=== PATIENT | male | born 1945 | race Caucasian/White ===

== ENCOUNTER 2019-01-11 14:13 | Observation (INO) ==
[2019-01-11 16:56] LABS: Basophils % 0.4 %; Eosinophils # 0.3 K/mcL (0.0-0.6); Eosinophils % 2.5 %; Hematocrit 42.8 % (37.5-50.1); Hemoglobin 13.3 g/dL (12.9-16.9); Immature Granulocytes % 0.5 % (0-4); Lymphocytes # 1.4 K/mcL (0.6-4.6); Lymphocytes % 13.1 %; Mean Corpuscular HGB Conc 31.1 g/dL (31.6-35.5); Mean Corpuscular Hemoglobin 29.5 pg (28.0-33.3); Mean Corpuscular Volume 94.9 fL (83.0-100.0); Mean Platelet Volume 9.8 fL (9.4-12.4); Monocytes # 1.1 K/mcL (0.0-1.3); Neutrophils # 7.5 K/mcL (1.6-8.9); Platelet Count 205 K/mcL (140-400); Red Blood Count 4.51 M/mcL (4.19-5.50); Red Cell Distribution Width 13.6 % (11.5-14.5); Segmented Neutrophils % 72.5 %; White Blood Count 10.3 K/mcL (4.3-11.1)
--- NOTE | 2019-01-11 17:02 | Emergency Department Note ---
Disposition Clinical Impression: Elevated d-dimer, Elevated troponin, Fluid retention, Pulmonary nodule Disposition: Admitted As Inpatient Condition: Fair Referrals: David Roman MD [Primary Care Provider] - Forms: ED Satisfaction Letter, Work/School Release Time of Disposition: 19:19 General Adult HPI - General Chief complaint: ED General Medical Stated complaint: Fluid Retention,CHERYLE, Time Seen by Provider: 01/11/19 16:11 Source: patient Mode of arrival: ambulatory Limitations: no limitations Nursing Notes Reviewed: Yes Vital Signs Reviewed: Yes - History of Present Illness HPI Narrative: Patient is a 73-year-old male that presents the emergency department with reports of fluid retention. Patient states that for the past 3 weeks she has had increased retention in his lower extremity's. Patient states that over the last 4 months has gained 28 pounds. Patient states that his primary care provider Breanna start him on Lasix and was concerned about starting him on it as an outpatient and recommended that he come here to the emergency department to have his Lasix administered. Patient denies any chest pain. Patient states he does have a little bit of increased shortness of breath since he started retaining fluid. She states that his legs are significantly more swollen the aunt his baseline. Patient denies any fevers, vomiting, diarrhea or any other symptoms at this time. Pain Scale: 7 - Related Data Home Medications Medication Instructions Recorded Confirmed Aspirin [Lo-Dose Aspirin EC] 81 mg PO DAILY 01/11/19 01/11/19 Atorvastatin [Lipitor] 20 mg PO DAILY 01/11/19 01/11/19 Benazepril HCl [Lotensin] 40 mg PO DAILY 01/11/19 01/11/19 Doxazosin [Cardura] 4 mg PO HS 01/11/19 01/11/19 Insulin NPH Hum/Reg Insulin Hm 100 unit SQ BID 01/11/19 01/11/19 [Humulin 70-30 Vial] Metformin HCl [Fortamet] 1,000 mg PO BID 01/11/19 01/11/19 Metoprolol Succinate [Toprol Xl] 50 mg PO DAILY 01/11/19 01/11/19 Spironolactone [Aldactone] 25 mg PO DAILY 01/11/19 01/11/19 Allergies Allergy/AdvReac Type Severity Reaction Status Date / Time No Known Allergies Allergy Verified 01/11/19 14:25 All systems ED: reviewed and negative except as stated. Constitutional: Denies: fever Cardiovascular: Denies: chest pain Respiratory: Reports: dyspnea Gastrointestinal: Denies: abdominal pain, nausea, vomiting Genitourinary: Denies: urgency, dysuria, frequency Integumentary: Reports: other (Fluid retention in bilateral lower extremities) Neurological: Denies: weakness, numbness, paresthesias Past Medical History - Past Medical History Medical history: Reports: atrial fibrillation, cardiomyopathy, CHF, coronary artery disease, diabetes, hyperlipidemia, hypertension, peripheral artery disease Psychiatric history: Reports: no psych history - Social History Smoking Status: Current every day smoker Smokeless Tobacco Status: No Alcohol use: Reports: none Drug use: Reports: none Physical Exam - General Limitations: no limitations General appearance: alert, in no apparent distress - Head Head exam: atraumatic, normocephalic - Eye Eye exam: Present: normal appearance, EOMI - Neck Neck exam: Present: normal inspection, full ROM, trachea midline - Respiratory Respiratory exam: Present: normal lung sounds bilaterally. Absent: respiratory distress, wheezes - Cardiovascular Cardiovascular exam: Present: regular rate, normal rhythm, normal heart sounds, +S1, +S2 - Abdominal Exam Abdominal exam: Present: soft, Non-Tender, normal bowel sounds - Extremities Exam Extremities exam: Present: normal inspection, full ROM, other (1+ pitting edema bilateral lower extremity's.) - Neurological Exam Neurological exam: Present: alert, oriented X3 - Psychiatric Psychiatric exam: Present: normal affect, normal mood - Skin Skin exam: Present: warm, dry, intact, other (Small amount of erythema to bilateral lower extremities likely secondary to venous stasis.) Course Vital Signs Temperature 97.9 F 01/11/19 14:25 Pulse Rate 115 01/11/19 14:25 Respiratory Rate 15 01/11/19 14:25 Blood Pressure 119/71 01/11/19 14:25 O2 Sat by Pulse Oximetry 92 01/11/19 14:25 Temperature 97.9 F 01/11/19 16:21 Pulse Rate 107 01/11/19 19:25 Respiratory Rate 16 01/11/19 19:25 Blood Pressure 136/94 01/11/19 19:25 O2 Sat by Pulse Oximetry 93 01/11/19 19:25 Oxygen Delivery Oxygen Delivery Room Air Medical Decision Making - MDM Narrative Medical decision making narrative: Due the patient's into the emergency Department with reports of fluid retention we will obtain basic laboratory testing as well as chest x-ray and EKG. patient's troponin was elevated at 0.04. The patient's d-dimer was elevated at 772. CTA of the chest was performed which showed no evidence of a pulmonary e mboli but did show pulmonary nodules. This was relayed to the patient that he would need follow-up for these nodules. Patient expressed understanding of this. Patient did not have any active chest pain. Patient's EKG showed likely atrial relation. Patient's BNP was 350. Based on the patient having signs of fluid retention and an elevated troponin without any previous laboratory testing that is most appropriate for him to be admitted to the hospital for further evaluation and management. Patient will be given 40 of IV Lasix. I called and spoke the admitting hospitalist and he has accepted the patient to their service. Patient will be admitted to hospital this time for further evaluation and management of his fluid retention and elevated troponin. - Medical Records Medical records reviewed: Yes I reviewed the patient's medical records. - Lab Data Lab results reviewed: Yes I reviewed the patient's lab results. Result diagrams: 01/11/19 16:33 01/11/19 16:33 Lab Results 01/11/19 01/11/19 01/11/19 Range/Units 16:33 16:33 16:33 WBC 10.3 (4.3-11.1) K/mcL RBC 4.51 (4.19-5.50) M/mcL Hgb 13.3 (12.9-16.9) g/dL Hct 42.8 (37.5-50.1) % MCV 94.9 (83.0-100.0) fL MCH 29.5 (28.0-33.3) pg MCHC 31.1 L (31.6-35.5) g/dL RDW 13.6 (11.5-14.5) % Plt Count 205 (140-400) K/mcL MPV 9.8 (9.4-12.4) fL Immature Gran % 0.5 (0-4) % Seg Neutrophils % 72.5 % Lymphocytes % 13.1 % Monocytes % 11.0 % Eosinophils % 2.5 % Basophils % 0.4 % Neutrophils # 7.5 (1.6-8.9) K/mcL Lymphocytes # 1.4 (0.6-4.6) K/mcL Monocytes # 1.1 (0.0-1.3) K/mcL Eosinophils # 0.3 (0.0-0.6) K/mcL Basophils # 0.0 (0.0-0.2) K/mcL D-Dimer (0-500) ng/mLFEU Sodium 138 (136-145) mEq/L Potassium 4.7 (3.5-5.1) mEq/L Chloride 102 (98-107) mEq/L Carbon Dioxide 29 (23-29) mEq/L BUN 15 (8-23) mg/dL Creatinine 0.90 (0.70-1.30) mg/dL Est GFR ( Amer) > 60 (> 60) Est GFR (Non-Af Amer) > 60 (> 60) BUN/Creatinine Ratio 17 (6-26) Glucose 74 (70-105) mg/dL Calculated Osmolality 285 (280-300) Calcium 9.1 (8.6-10.3) mg/dL Troponin I 0.04 H* (< 0.04) ng/mL B-Natriuretic Peptide 350 H (Less than 100) pg/mL 01/11/19 Range/Units 16:33 WBC (4.3-11.1) K/mcL RBC (4.19-5.50) M/mcL Hgb (12.9-16.9) g/dL Hct (37.5-50.1) % MCV (83.0-100.0) fL MCH (28.0-33.3) pg MCHC (31.6-35.5) g/dL RDW (11.5-14.5) % Plt Count (140-400) K/mcL MPV (9.4-12.4) fL Immature Gran % (0-4) % Seg Neutrophils % % Lymphocytes % % Monocytes % % Eosinophils % % Basophils % % Neutrophils # (1.6-8.9) K/mcL Lymphocytes # (0.6-4.6) K/mcL Monocytes # (0.0-1.3) K/mcL Eosinophils # (0.0-0.6) K/mcL Basophils # (0.0-0.2) K/mcL D-Dimer 773 H (0-500) ng/mLFEU Sodium (136-145) mEq/L Potassium (3.5-5.1) mEq/L Chloride (98-107) mEq/L Carbon Dioxide (23-29) mEq/L BUN (8-23) mg/dL Creatinine (0.70-1.30) mg/dL Est GFR ( Amer) (> 60) Est GFR (Non-Af Amer) (> 60) BUN/Creatinine Ratio (6-26) Glucose (70-105) mg/dL Calculated Osmolality (280-300) Calcium (8.6-10.3) mg/dL Troponin I (< 0.04) ng/mL B-Natriuretic Peptide (Less than 100) pg/mL - Radiology Data Radiology results reviewed: Yes I reviewed the patient's radiology results. Chest X-Ray 01/11/19 16:11 IMPRESSION: Cardiomegaly with mild vascular indistinctness, suggesting superimposed pulmonary edema D/ / Miguel Angel Mcginnis MD / Miguel Angel Mcginnis MD Interpreting Provider: Miguel Angel Mcginnis MD Chest CTA 01/11/19 17:50 IMPRESSION: No evidence of pulmonary embolism. Trace right pleural effusion. Central bronchial wall thickening is identified as well as bilateral innumerable subcentimeter mostly peripheral noncalcified nodules; findings likely represent infectious airways disease/pneumonitis. See follow-up recommendation below. Cholelithiasis. There is ill definition of the right upper quadrant mesenteric fat. Correlation for acute inflammatory process is recommended. RECOMMENDATIONS: Multiple pulmonary nodules. Most severe: 7.0 mm solid pulmonary nodule within the upper lobe. Recommend a non-contrast Chest CT at 3-6 months, then consider another non-contrast Chest CT at 18-24 months. These guidelines do not apply to patients younger than 35 years, immunocompromised patients, and patients with cancer. Follow up in patients with significant comorbidities as clinically warranted. For lung cancer screening, adhere to Lung-RADS guidelines. Reference: Radiology. 2017; 284(1):228-43. D/ / Alycia Butcher Cha, MD / Alycia Butcher Cha, MD Interpreting Provider: Alycia Butcher Cha, MD - EKG Data EKG #1 EKG attestation: Yes I reviewed and interpreted this EKG. EKG results narrative: EKG shows atrial fibrillation at a rate of 103. QRS duration 161, QTC 563. No evidence of STEMI on EKG.
[2019-01-11 17:08] LABS: BUN/Creatinine Ratio 17 (6-26); Blood Urea Nitrogen 15 mg/dL (8-23); Calcium 9.1 mg/dL (8.6-10.3); Carbon Dioxide 29 mEq/L (23-29); Chloride 102 mEq/L (98-107); Glucose 74 mg/dL (70-105); Osmolality,Calculated 285 (280-300); Potassium 4.7 mEq/L (3.5-5.1); Sodium 138 mEq/L (136-145); eGFR For African Americans > 60 (> 60); eGFR For Non-African Americans > 60 (> 60)
[2019-01-11 17:14] LABS: Troponin I 0.04 ng/mL (< 0.04)
[2019-01-11] MEDS ORDERED: Isovue-370 500 ML BOTTLE IVP ONE (17:50)
--- NOTE | 2019-01-11 19:07 | Emergency Department Note ---
Disposition Clinical Impression: Elevated d-dimer, Elevated troponin, Fluid retention, Pulmonary nodule Disposition: Admitted As Inpatient Condition: Fair Referrals: David Roman MD [Primary Care Provider] - Forms: ED Satisfaction Letter, Work/School Release Time of Disposition: 19:50 General Adult HPI - General Chief complaint: ED General Medical Stated complaint: Fluid Retention,CHERYLE, Time Seen by Provider: 01/11/19 16:11 Source: patient Mode of arrival: ambulatory Limitations: no limitations - History of Present Illness Pain Scale: 7 - Related Data Home Medications Medication Instructions Recorded Confirmed Aspirin [Lo-Dose Aspirin EC] 81 mg PO DAILY 01/11/19 01/11/19 Atorvastatin [Lipitor] 20 mg PO DAILY 01/11/19 01/11/19 Benazepril HCl [Lotensin] 40 mg PO DAILY 01/11/19 01/11/19 Doxazosin [Cardura] 4 mg PO HS 01/11/19 01/11/19 Insulin NPH Hum/Reg Insulin Hm 40 unit SQ BID 01/11/19 01/11/19 [Humulin 70-30 Vial] Metformin HCl [Fortamet] 1,000 mg PO BID 01/11/19 01/11/19 Metoprolol Succinate [Toprol Xl] 50 mg PO DAILY 01/11/19 01/11/19 Spironolactone [Aldactone] 25 mg PO DAILY 01/11/19 01/11/19 Allergies Allergy/AdvReac Type Severity Reaction Status Date / Time No Known Allergies Allergy Verified 01/11/19 14:25 Constitutional: Denies: fever Cardiovascular: Denies: chest pain Respiratory: Reports: dyspnea Gastrointestinal: Denies: abdominal pain, nausea, vomiting Genitourinary: Denies: urgency, dysuria, frequency Integumentary: Reports: other (Fluid retention in bilateral lower extremities) Neurological: Denies: weakness, numbness, paresthesias Past Medical History - Past Medical History Medical history: Reports: atrial fibrillation, cardiomyopathy, CHF, coronary artery disease, diabetes, hyperlipidemia, hypertension, peripheral artery disease Psychiatric history: Reports: no psych history - Social History Smoking Status: Current every day smoker Smokeless Tobacco Status: No Alcohol use: Reports: none Drug use: Reports: none Physical Exam - General Limitations: no limitations General appearance: alert, in no apparent distress Course Vital Signs Temperature 97.9 F 01/11/19 14:25 Pulse Rate 115 01/11/19 14:25 Respiratory Rate 15 01/11/19 14:25 Blood Pressure 119/71 01/11/19 14:25 O2 Sat by Pulse Oximetry 92 01/11/19 14:25 Temperature 97.9 F 01/11/19 16:21 Pulse Rate 107 01/11/19 19:25 Respiratory Rate 16 01/11/19 19:25 Blood Pressure 136/94 01/11/19 19:25 O2 Sat by Pulse Oximetry 93 01/11/19 19:25 Oxygen Delivery Oxygen Delivery Room Air Medical Decision Making - Medical Records Medical records reviewed: Yes I reviewed the patient's medical records. - Lab Data Lab results reviewed: Yes I reviewed the patient's lab results. Result diagrams: 01/11/19 16:33 01/11/19 16:33 Lab Results 01/11/19 01/11/19 01/11/19 Range/Units 16:33 16:33 16:33 WBC 10.3 (4.3-11.1) K/mcL RBC 4.51 (4.19-5.50) M/mcL Hgb 13.3 (12.9-16.9) g/dL Hct 42.8 (37.5-50.1) % MCV 94.9 (83.0-100.0) fL MCH 29.5 (28.0-33.3) pg MCHC 31.1 L (31.6-35.5) g/dL RDW 13.6 (11.5-14.5) % Plt Count 205 (140-400) K/mcL MPV 9.8 (9.4-12.4) fL Immature Gran % 0.5 (0-4) % Seg Neutrophils % 72.5 % Lymphocytes % 13.1 % Monocytes % 11.0 % Eosinophils % 2.5 % Basophils % 0.4 % Neutrophils # 7.5 (1.6-8.9) K/mcL Lymphocytes # 1.4 (0.6-4.6) K/mcL Monocytes # 1.1 (0.0-1.3) K/mcL Eosinophils # 0.3 (0.0-0.6) K/mcL Basophils # 0.0 (0.0-0.2) K/mcL D-Dimer (0-500) ng/mLFEU Sodium 138 (136-145) mEq/L Potassium 4.7 (3.5-5.1) mEq/L Chloride 102 (98-107) mEq/L Carbon Dioxide 29 (23-29) mEq/L BUN 15 (8-23) mg/dL Creatinine 0.90 (0.70-1.30) mg/dL Est GFR ( Amer) > 60 (> 60) Est GFR (Non-Af Amer) > 60 (> 60) BUN/Creatinine Ratio 17 (6-26) Glucose 74 (70-105) mg/dL Calculated Osmolality 285 (280-300) Calcium 9.1 (8.6-10.3) mg/dL Troponin I 0.04 H* (< 0.04) ng/mL B-Natriuretic Peptide 350 H (Less than 100) pg/mL 01/11/19 Range/Units 16:33 WBC (4.3-11.1) K/mcL RBC (4.19-5.50) M/mcL Hgb (12.9-16.9) g/dL Hct (37.5-50.1) % MCV (83.0-100.0) fL MCH (28.0-33.3) pg MCHC (31.6-35.5) g/dL RDW (11.5-14.5) % Plt Count (140-400) K/mcL MPV (9.4-12.4) fL Immature Gran % (0-4) % Seg Neutrophils % % Lymphocytes % % Monocytes % % Eosinophils % % Basophils % % Neutrophils # (1.6-8.9) K/mcL Lymphocytes # (0.6-4.6) K/mcL Monocytes # (0.0-1.3) K/mcL Eosinophils # (0.0-0.6) K/mcL Basophils # (0.0-0.2) K/mcL D-Dimer 773 H (0-500) ng/mLFEU Sodium (136-145) mEq/L Potassium (3.5-5.1) mEq/L Chloride (98-107) mEq/L Carbon Dioxide (23-29) mEq/L BUN (8-23) mg/dL Creatinine (0.70-1.30) mg/dL Est GFR ( Amer) (> 60) Est GFR (Non-Af Amer) (> 60) BUN/Creatinine Ratio (6-26) Glucose (70-105) mg/dL Calculated Osmolality (280-300) Calcium (8.6-10.3) mg/dL Troponin I (< 0.04) ng/mL B-Natriuretic Peptide (Less than 100) pg/mL - Radiology Data Radiology results reviewed: Yes I reviewed the patient's radiology results. Attestation Statement - Attestation Attestation: I examined this patient and my medical decision-making was reviewed with the Resident Physician. I agree with the documented findings, disposition and treatment plan as described except to the extent set forth below. 73-year-old male since emergency room for peripheral edema that increasing associated with weight gain and some slight shortness of breath. Denies chest pain. Saw his PCP told him to go to the ER to be evaluated for volume overload. Patient states he is gained weight over the past couple weeks. He is not on any Lasix. Screening lab work showed a slightly elevated troponin as well as an elevated BNP. CT of the chest was done. Those results are pending. Vitals are stable. Patient does follow with focal cardiology here. Patient reports a history of congestive heart failure.
[2019-01-11] MEDS ORDERED: Furosemide 40 MG/4 ML VIAL IVP ONE (19:20)
[2019-01-11] MEDS ORDERED: traMADol 50 MG TABLET PO PRN (20:47)
[2019-01-11] MEDS ORDERED: *HR* Dextrose 50 % in Water (Syg) 50 ML SYRINGE IVP PRN (20:47)
[2019-01-11] MEDS ORDERED: Acetaminophen 325 MG TABLET PO PRN (20:47)
[2019-01-11] MEDS ORDERED: Dextrose Gel 15 GM/37.5 ML TUBE PO PRN ×2 (20:47)
[2019-01-11] MEDS ORDERED: Furosemide 40 MG/4 ML VIAL IVP SCH (21:00)
[2019-01-11] MEDS ORDERED: Insulin LISPRO 300 UNITS/3 ML VIAL SQ SCH (21:00)
[2019-01-11] MEDS ORDERED: Perflutren Lipid Microsphere 1.3 ML in 0.9 % Sodium Chloride 8.7 ML IVP ONE (21:06)
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
[2019-01-12 05:06] LABS: BUN/Creatinine Ratio 17 (6-26); Blood Urea Nitrogen 16 mg/dL (8-23); Calcium 8.9 mg/dL (8.6-10.3); Carbon Dioxide 28 mEq/L (23-29); Chloride 103 mEq/L (98-107); Cholesterol 97 mg/dL (< 200); Glucose 174 mg/dL (70-105); HDL Cholesterol 32 mg/dL (40-59); LDL Cholesterol,Calculated 48 mg/dL (0-99); Osmolality,Calculated 291 (280-300); Potassium 4.3 mEq/L (3.5-5.1); Sodium 138 mEq/L (136-145); Triglycerides 86 mg/dL (< 150); eGFR For African Americans > 60 (> 60); eGFR For Non-African Americans > 60 (> 60)
[2019-01-12] MEDS: *HR* Heparin 5,000 UNIT/ML VIAL SQ SCH ×2 (05:07→17:22)
[2019-01-12 05:20] LABS: Thyroid Stimulating Hormone 2.031 mcIU/mL (0.340-5.600)
[2019-01-12 06:46] LABS: Estimated Average Glucose 157 mg/dl
[2019-01-12] MEDS ORDERED: Furosemide 40 MG/4 ML VIAL IVP SCH (08:00)
[2019-01-12] MEDS: Insulin LISPRO 300 UNITS/3 ML VIAL SQ SCH ×2 (08:25→12:17)
[2019-01-12] MEDS: Aspirin Enteric Coated 81 MG Tablet PO SCH (08:26)
[2019-01-12] MEDS: Metoprolol XL (24 HR) Succ 50 MG TAB.ER.24H PO SCH (08:26)
[2019-01-12] MEDS: Spironolactone 25 MG TABLET PO SCH (08:26)
[2019-01-12] MEDS: Lisinopril 20 MG TABLET PO SCH (08:27)
--- NOTE | 2019-01-12 12:29 | Internal Med Progress Note ---
Hospitalist Progress Note - Encounter Date of Encounter: 01/12/19 Time of Encounter: 10:00 - Subjective Interval History: Mr. Alvarez is a 73-year-old M with known PMH of hypertension, diabetes, atrial fibrillation but not on anticoagulants, coronary and peripheral artery disease who presented emergency room upon referral by his PCP after he went in with complaints of increasing generalized swelling especially in his lower legs in addition to 28 pounds of weight gain over the last 3 months. It was consideration to start him on furosemide as an outpatient however his PCP was concerned about his general state and therefore was referred to the ER. In the ER his BNP was 350 in the setting of obesity. His initial troponin was 0.04. He was admitted in the hospital and placed him on monitoring and evaluation advisor. He was started on IV Lasix. His troponin trended down to normal. He denied any CP. Pt stated he is feeling little better today. He still has moderate swelling in the legs. Also noticed erythema with a couple of ulcers over Left mid anderson area. - Exam Vitals: Temp Pulse Resp BP Pulse Ox 98.6 F 115 20 116/71 96 01/12/19 11:15 01/12/19 11:15 01/12/19 11:15 01/12/19 11:15 01/12/19 11:15 Exam: Gen: Alert, awake, Oriented to time,place and person Chest: Diminished breath sounds B/L, No wheezing, No crackles, No rales Heart: S1S2+ Tachycardia, No murmurs Abd: Soft, NT, BS +, No organomegaly Ext: Moderate edema, noticed erythema in both legs, a couple of open ulcers noticed over Left mid anderson region, pulses are palpable, No calf tenderness Neuro : No acute focal neuro deficits noticed Skin: Venous stasis changes in both legs - Assessment and Plan (1) Acute exacerbation of CHF (congestive heart failure) Current Visit: Yes Status: Acute Assessment and Plan: Suspecting possible systolic CHF Waiting on 2 D Echo since he is Lasix naive, changed his Lasix to 20mg BID strict I & O cont ACEI, metoprolol and ASA (2) HTN (hypertension) Current Visit: Yes Status: Acute (3) Cellulitis Current Visit: Yes Status: Acute Assessment and Plan: Due to venous stasis started him on empirical abx Ancef (4) Venous stasis dermatitis of both lower extremities Current Visit: Yes Status: Acute (5) Elevated troponin Current Visit: Yes Status: Acute Assessment and Plan: due to CHF exacerbation trended down will f/u on 2 D Echo (6) Atrial fibrillation Current Visit: Yes Status: Acute Assessment and Plan: rate fairly controlled wit home dose Metoprolol cont close monitoring for now He is not on anti coag His CHADSVASC score @ 3 Will talk to pt and his PCP about anti coag options (7) Obesity (BMI 30.0-34.9) Current Visit: Yes Status: Acute Assessment and Plan: counseled to loose weight - Time Spent with Patient Total time spent is greater than 50% in coordination of care (as documented) at patient's floor/unit and/or counseling patient: Internal Medicine: Result - Labs CBC & Chem 7: 01/11/19 16:33 01/12/19 04:17 Labs: Short CBC 01/11/19 Range/Units 16:33 WBC 10.3 (4.3-11.1) K/mcL Hgb 13.3 (12.9-16.9) g/dL Hct 42.8 (37.5-50.1) % Plt Count 205 (140-400) K/mcL Neutrophils # 7.5 (1.6-8.9) K/mcL BMP 01/11/19 01/12/19 16:33 04:17 Sodium 138 138 Potassium 4.7 4.3 Chloride 102 103 Carbon Dioxide 29 28 BUN 15 16 Creatinine 0.90 0.96 Glucose 74 174 H Calcium 9.1 8.9 Cardiac Enzymes 01/11/19 01/11/19 Range/Units 16:33 21:25 Troponin I 0.04 H* 0.03 (< 0.04) ng/mL - ABG Interpretation ABG results: PT/INR, D-dimer D-Dimer 773 ng/mLFEU (0-500) H 01/11/19 16:33 - Impressions Impressions Chest X-Ray 01/11/19 16:11 IMPRESSION: Cardiomegaly with mild vascular indistinctness, suggesting superimposed pulmonary edema D/ / Miguel Angel Mcginnis MD / Miguel Angel Mcginnis MD Interpreting Provider: Miguel Angel Mcginnis MD Chest CTA 01/11/19 17:50 IMPRESSION: No evidence of pulmonary embolism. Trace right pleural effusion. Central bronchial wall thickening is identified as well as bilateral innumerable subcentimeter mostly peripheral noncalcified nodules; findings likely represent infectious airways disease/pneumonitis. See follow-up recommendation below. Cholelithiasis. There is ill definition of the right upper quadrant mesenteric fat. Correlation for acute inflammatory process is recommended. RECOMMENDATIONS: Multiple pulmonary nodules. Most severe: 7.0 mm solid pulmonary nodule within the upper lobe. Recommend a non-contrast Chest CT at 3-6 months, then consider another non-contrast Chest CT at 18-24 months. These guidelines do not apply to patients younger than 35 years, immunocompromised patients, and patients with cancer. Follow up in patients with significant comorbidities as clinically warranted. For lung cancer screening, adhere to Lung-RADS guidelines. Reference: Radiology. 2017; 284(1):228-43. D/ / Alycia Butcher Cha, MD / Alycia Butcher Cha, MD Interpreting Provider: Alycia Butcher Cha, MD Echocardiogram 01/11/19 20:44 Impressions: LVEF 30%. Atypical septal motion consistent with paced rhythm. Indeterminate diastolic function. LV chamber size upper limits of normal. Definity echo contrast was used. There is no LV thrombus. Right ventricle is not optimally visualized. Mild mitral regurgitation. Mild tricuspid regurgitation. TR signal is suboptimal to estimate RVSP. A device lead was visualized in the right atrium and right ventricle. No prior echo for comparison. Left Ventricular Wall Motion: Rest Echo Findings The apex, apical inferior, mid inferior, basal inferior, apical anterior, mid anterior, basal anterior, apical septal, mid inferior septal, basal inferior septal, apical lateral, mid anterior lateral, basal anterior lateral, mid anterior septal, mid inferior lateral, basal anterior septal and basal inferior lateral hernandez were hypokinetic. Findings: Study Quality * Technically adequate exam. ECG Findings * Paced rhythm. Left Ventricle * LVEF 30%. * Atypical septal motion consistent with paced rhythm. * Indeterminate diastolic function. * LV chamber size upper limits of normal. * Definity echo contrast was used. * There is no LV thrombus. Right Ventricle * Right ventricle is not optimally visualized. Left Atrium * Moderately dilated left atrium. Right Atrium * Mildly dilated right atrium. Aortic Valve * No aortic regurgitation. * Aortic valve not well visualized. * No aortic stenosis. Mitral Valve * Normal mitral valve structure. * No mitral stenosis. * Mild mitral regurgitation. Tricuspid Valve * Tricuspid valve not well visualized. * Mild tricuspid regurgitation. * Estimated RA pressure is 8 mmHg. Pulmonic Valve * Pulmonic valve is not well visualized. * No pulmonic stenosis. * No pulmonic regurgitation. Pulmonary Artery * Pulmonary artery not well visualized. Aorta * Normally sized aortic root. Pericardium * There is no pericardial effusion present. Device lead * A device lead was visualized in the right atrium and right ventricle. Interatrial Septum * No evidence of PFO by color Doppler. Consult Discharge Plan - Plan Referrals: Abel,David Islas MD [Primary Care Provider] - (3) Cellulitis Qualifiers: Site of cellulitis: extremity Site of cellulitis of extremity: lower extremity (6) Atrial fibrillation Qualifiers: Atrial fibrillation type: chronic Qualified Code(s): I48.2 - Chronic atrial fibrillation
[2019-01-12] MEDS: Insulin NPH/REG 70/30 100 UNIT/ML (x5UNIT) SQ SCH ×2 (13:19→21:11)
[2019-01-12] MEDS: ceFAZolin 1,000 MG in Water for inj. (sterile) 10 ML IVP SCH ×2 (13:19→23:50)
[2019-01-12] MEDS: Multivit/Ca/Min/Fe/FA 1 TAB TABLET PO SCH (13:20)
--- NOTE | 2019-01-12 14:23 | Electrocardiograph Report ---
[place] [id number] Test Date: 2019-01-11 Pat Name: Grzegorz Alvarez Department: EXAM1 Room: 3B38 Gender: M [employer]: : 1945 Requested By: Cory Viera Order Number: [id number] Reading MD: Tyson Calixto Measurements Intervals [place] Rate: 103 P: [place]: QRS: -88 QRSD: 161 T: 58 QT: 430 QTc: 563 Interpretive Statements Atrial fibrillation Right bundle branch block Inferior infarct, old Anterior infarct, old ateral leads are also involved Electronically Signed On 01-12-2019 14:22:29 EDT by Tyson Calixto
[2019-01-12] MEDS: Furosemide 20 MG/2 ML VIAL IVP SCH (17:22)
[2019-01-13] MEDS: *HR* Heparin 5,000 UNIT/ML VIAL SQ SCH (03:42)
[2019-01-13] MEDS: Furosemide 20 MG/2 ML VIAL IVP SCH (08:24)
[2019-01-13] MEDS: ceFAZolin 1,000 MG in Water for inj. (sterile) 10 ML IVP SCH (08:25)
[2019-01-13] MEDS: Metoprolol XL (24 HR) Succ 50 MG TAB.ER.24H PO SCH (08:25)
[2019-01-13] MEDS: Lisinopril 20 MG TABLET PO SCH (08:25)
[2019-01-13] MEDS: Spironolactone 25 MG TABLET PO SCH (08:25)
[2019-01-13] MEDS: Multivit/Ca/Min/Fe/FA 1 TAB TABLET PO SCH (08:25)
[2019-01-13] MEDS: Aspirin Enteric Coated 81 MG Tablet PO SCH (08:25)
[2019-01-13] MEDS: Insulin NPH/REG 70/30 100 UNIT/ML (x5UNIT) SQ SCH (08:28)
[2019-01-13 11:08] VITALS: BP 123/78
[2019-01-13 11:28] LABS: BUN/Creatinine Ratio 25 (6-26); Blood Urea Nitrogen 28 mg/dL (8-23); Calcium 9.5 mg/dL (8.6-10.3); Carbon Dioxide 34 mEq/L (23-29); Chloride 101 mEq/L (98-107); Glucose 105 mg/dL (70-105); Magnesium 1.9 mg/dL (1.6-2.6); Osmolality,Calculated 292 (280-300); Potassium 3.9 mEq/L (3.5-5.1); Sodium 138 mEq/L (136-145); eGFR For African Americans > 60 (> 60); eGFR For Non-African Americans > 60 (> 60)
--- NOTE | 2019-01-13 11:41 | Discharge Summary ---
- NOTES TO OUTPATIENT PROVIDER Notes to Outpatient Provider: f/u with PCP in one week. f/u with Cardiology in 1-2 weeks. Please talk to your PCP and Crowd Controller about going on anti coagulation for youe Afib Date of Encounter: 01/13/19 Time of Encounter: 11:38 - Discharge Diagnosis (1) Acute exacerbation of CHF (congestive heart failure) Priority: Primary Status: Acute Qualifiers: Heart failure type: systolic Qualified Code(s): I50.23 - Acute on chronic systolic (congestive) heart failure (2) Cellulitis Priority: Primary Status: Acute Qualifiers: Site of cellulitis: extremity Site of cellulitis of extremity: lower extremity Laterality: unspecified laterality Qualified Code(s): L03.119 - Cellulitis of unspecified part of limb (3) HTN (hypertension) Priority: Secondary Status: Acute Qualifiers: Hypertension type: essential hypertension Qualified Code(s): I10 - Essential (primary) hypertension (4) Venous stasis dermatitis of both lower extremities Priority: Secondary Status: Acute (5) Elevated troponin Priority: Secondary Status: Acute (6) Atrial fibrillation Priority: Secondary Status: Acute Qualifiers: Atrial fibrillation type: chronic Qualified Code(s): I48.2 - Chronic atrial fibrillation (7) Obesity (BMI 30.0-34.9) Priority: Secondary Status: Acute Hospital course: Mr. Alvarez is a 73-year-old M with known PMH of hypertension, diabetes, atrial fibrillation but not on anticoagulation, coronary and peripheral artery disease who presented emergency room upon referral by his PCP after he went in with complaints of increasing generalized swelling especially in his lower legs in addition to 28 pounds of weight gain over the last 3 months. It was consideration to start him on furosemide as an outpatient however his PCP was concerned about his general state and therefore was referred to the ER. In the ER his BNP was 350 in the setting of obesity. His initial troponin was 0.04. He was admitted in the hospital and placed him on classroom monitor. He was started on IV Lasix. His troponin trended down to normal. He denied any CP. He did have moderate erythema with a couple of ulcers over Left mid anderson area. I started him on empirical abx IV Ancef. Pt stated his symptoms improved today. His 2 D Echo showed LVEF 30% and indeterminate diastolic function. His HR was fairly controlled so Inc his Metoprolol to 75mg and cut down on Benazepril to 20mg since his BP in 110's. His arterial doppler of b/l LE showed - b/l moderately occlusive disease. Recommend to f/u with vascular surgery Dr. Paulson as an out pt. Will d/c him home in stable condition today. Talked to pt's PCP and updated him about current hospital course as well as medication changes. Also recommend long tem anti coag for his A fib since his CHADSVASC score at 4. He is going to talk to the pt and may start him on Eliquis. - Time Spent with Patient Total time spent providing and/or coordinating discharge services: - Discharge Medications Prescriptions: New Furosemide [Lasix] 40 mg PO DAILY #30 tablet Nicotine Patch [Nicoderm] 1 each TD DAILY #30 patch.td24 Cephalexin [Keflex] 500 mg PO TID #21 capsule Continued Spironolactone [Aldactone] 25 mg PO DAILY Doxazosin [Cardura] 4 mg PO HS Metformin HCl [Fortamet] 1,000 mg PO BID Insulin NPH Hum/Reg Insulin Hm [Humulin 70-30 Vial] 40 unit SQ BID Aspirin [Lo-Dose Aspirin EC] 81 mg PO DAILY Atorvastatin [Lipitor] 20 mg PO DAILY Changed Benazepril HCl [Lotensin] 20 mg PO DAILY #15 tablet Metoprolol Succinate [Toprol Xl] 75 mg PO DAILY #45 tab.er.24h Home Medications: Aspirin [Lo-Dose Aspirin EC] 81 mg PO DAILY 01/11/19 [History] Atorvastatin [Lipitor] 20 mg PO DAILY 01/11/19 [History] Doxazosin [Cardura] 4 mg PO HS 01/11/19 [History] Insulin NPH Hum/Reg Insulin Hm [Humulin 70-30 Vial] 40 unit SQ BID 01/11/19 [History] Metformin HCl [Fortamet] 1,000 mg PO BID 01/11/19 [History] Spironolactone [Aldactone] 25 mg PO DAILY 01/11/19 [History] Benazepril HCl [Lotensin] 20 mg PO DAILY #15 tablet 01/13/19 [Rx] Cephalexin [Keflex] 500 mg PO TID #21 capsule 01/13/19 [Rx] Furosemide [Lasix] 40 mg PO DAILY #30 tablet 01/13/19 [Rx] Metoprolol Succinate [Toprol Xl] 75 mg PO DAILY #45 tab.er.24h 01/13/19 [Rx] Nicotine Patch [Nicoderm] 1 each TD DAILY #30 patch.td24 01/13/19 [Rx] Allergies/Adverse Reactions: 3 Allergy/AdvReac Type Severity Reaction Status Date / Time No Known Allergies Allergy Verified 01/11/19 14:25 Date of admission: 01/11/19 19:55 Primary care physician: David Roman MD Consults: 01/12/19 08:48 Consult to Nurse Navigator [CONS] Routine Comment: CHF 01/13/19 11:15 Consult to Cardiology [CONS] Routine Comment: Consulting Provider: Cardiology Lisa Reason for Consult: Acute systolic CHF Time Notified: 11:15 Call Completed: Yes - Constitutional Vitals: Temp Pulse Resp BP Pulse Ox 98.3 F 106 16 123/78 90 01/13/19 11:04 01/13/19 11:04 01/13/19 11:04 01/13/19 11:04 01/13/19 11:04 General appearance: Present: cooperative, A&O X 3, no acute distress, answers questions appropriately Exam: Gen: Alert, awake, Oriented to time,place and person Chest: Diminished breath sounds B/L, No wheezing, No crackles, No rales Heart: S1S2+ Tachycardia, No murmurs Abd: Soft, NT, BS +, No organomegaly Ext: Improving edema and erythema in both legs, a couple of open ulcers noticed over Left mid anderson region, pulses are palpable, No calf tenderness Neuro : No acute focal neuro deficits noticed Skin: Venous stasis changes in both legs - Patient Status Disposition: Home, Self-Care Condition: Good Overall status at discharge: patient is back to baseline - Discharge Instructions Instructions: Heart Failure (DC), Heart Healthy Diet (DC), Chronic Hypertension (DC), Low Sodium Diet (GEN) Follow Up With: David Roman MD [Primary Care Provider] - 01/23/19 9:00 am Rober Huizar DO [Partnered Physician] - (clinic will call with appt. ) Additional Instructions: Follow-up appointments: If there is not an appointment listed below, please call your physician and schedule a follow-up appointment. If you have congestive heart failure and your symptoms return, make an appointment with your physician. Medication List: Carry an up to date list of medications you are taking at all time. We have given you an updated medication list including any new medications that you have been prescribed. Please provide that list to your primary provider Symptoms: If your condition changes or you experience any of the following symptoms, notify your physician immediately: Unusual or worsening pain, fever, persistent nausea and vomiting, bleeding, increase in swelling (especially in your legs), sudden weight gain, extreme dizziness, chest pain, increased drainage or redness from a wound or incision. Go to the emergency department if you experience a problem with breathing. Weights: If you have a history of swelling or shortness of breath, weigh yourself daily and notify your physician if you have a weight gain of two or more pounds in one day or 5 or more pounds in a week. If you experience any of the warning signs for stroke: Sudden numbness or weakness of the face, arm or leg; especially on one side of the body, sudden confusion, trouble speaking or understanding, sudden trouble seeing in one or both eyes, sudden trouble walking, dizziness, loss of balance or coordination, sudden sever headache with no cause; Call 911 or go to the emergency room. Stroke is a medical emergency. Some risk factors for stroke: Age, cigarette smoking, diabetes, excessive alcohol consumption, family history, high blood pressure, overweight, physical inactivity, prior stroke, heart attack, diagnosis of carotid artery stenosis or other artery disease. If you smoke, STOP: Smoking or tobacco use significantly increases your risk of heart and lung disease. Your chance of disease greatly increases if you continue to smoke. For more information, call the [place] tobacco quit line for smoking cessation 5-047-JVMN-NOW ( ) - Diet and Activity Diet: low salt diet
[2019-01-13] MEDS ORDERED: Metoprolol XL (24 HR) Succ 25 MG TAB.ER.24H PO ONE (11:43)
== END 2019-01-13 14:30 | disposition home or self-care (01) ==
LOC: EMEROOARM 14:13 → 3BNU 14:13 → SUATTDRO 19:55 → 3BNU 20:15
PROVIDERS: ADMIT Internal Medicine; ATTEND Family Medicine

== ENCOUNTER 2019-05-04 18:25 | Inpatient (IN) ==
[2019-05-04] MEDS ORDERED: 0.9 % Sodium Chloride 1,000 ML IVC ONE (18:44)
[2019-05-04 19:36] LABS: VBG HCO3 17 mEq/L (21-27); VBG PCO2 33 mmHg (41-51); VBG PO2 80 mmHg (25-50)
[2019-05-04 19:47] LABS: INR 1.1; Prothrombin Time 12.2 Seconds (9.4-12.1)
[2019-05-04 19:50] LABS: Calcium 10.3 mg/dL (8.6-10.3); Potassium 4.3 mEq/L (3.5-5.1)
[2019-05-04] MEDS ORDERED: *HR* Dextrose 50 % in Water (Syg) 50 ML SYRINGE IVP PRN ×2 (19:57→22:25)
[2019-05-04] MEDS ORDERED: Insulin Human Regular 100 UNIT in 0.9 % Sodium Chloride 100 ML IVC SCH (20:00)
[2019-05-04 20:02] LABS: Troponin I 0.07 ng/mL (< 0.04)
[2019-05-04 20:27] LABS: Basophils % 0.2 %; Hematocrit 52.3 % (37.5-50.1); Hemoglobin 18.3 g/dL (12.9-16.9); Immature Granulocytes % 0.6 % (0-4); Lymphocytes # 0.6 K/mcL (0.6-4.6); Mean Corpuscular Hemoglobin 28.9 pg (28.0-33.3); Mean Corpuscular Volume 82.5 fL (83.0-100.0); Monocytes # 0.7 K/mcL (0.0-1.3); Monocytes % 5.1 %; Neutrophils # 12.3 K/mcL (1.6-8.9); Platelet Count 251 K/mcL (140-400); Red Blood Count 6.34 M/mcL (4.19-5.50); Red Cell Distribution Width 14.5 % (11.5-14.5); Segmented Neutrophils % 90.1 %; White Blood Count 13.6 K/mcL (4.3-11.1)
[2019-05-04] MEDS: 0.9 % Sodium Chloride 1,000 ML IVC SCH ×2 (20:28→21:13)
[2019-05-04 20:39] LABS: Albumin 3.6 g/dL (3.5-5.7); Albumin/Globulin Ratio 1.2 (1.1-2.2); Bilirubin,Direct 0.2 mg/dL (0.0-0.2); Bilirubin,Indirect 0.4 mg/dL (0.0-1.0); Bilirubin,Total 0.6 mg/dL (0.3-1.0); Globulin 2.9 g/dL (2.4-3.5); Total Protein 6.5 g/dL (6.4-8.9)
[2019-05-04 20:56] LABS: Bilirubin,Urine Moderate (Negative); Blood,Urine Small (Negative); Clarity,Urine Cloudy (Clear); Color,Urine Yellow (Yellow); Glucose,Urine (UA) >=1000 mg/dL (Normal); Ketones,Urine 40 mg/dL (Negative); Leukocyte Esterase,Urine Negative (Negative); Nitrite,Urine Negative (Negative); Protein,Urine Trace mg/dL (Neg-Trace); Specific Gravity,Urine 1.028 (1.010-1.025); Urobilinogen,Urine Normal (Normal)
[2019-05-04 20:59] LABS: Bacteria,Urine None Seen per hpf (None-Few); Squamous Epithelial Cell,Urine Many per lpf (None-Few); WBC,Urine 0-3 per hpf (0-3)
[2019-05-04 21:15] LABS: Hyaline Casts,Urine Few per lpf (None-Few)
[2019-05-04] MEDS ORDERED: Tdap (Boostrix) Vaccine 0.5 ML SYRINGE IM ONE (21:27)
[2019-05-04] MEDS ORDERED: Aspirin 325 MG TABLET PO ONE (21:28)
[2019-05-04] MEDS ORDERED: D5% in 0.45% NACL w KCl 20 MEQ/1,000 ML MLS IVC PRN (22:25)
[2019-05-04] MEDS ORDERED: Insulin LISPRO 300 UNITS/3 ML VIAL SQ PRN (22:25)
[2019-05-04 23:27] LABS: VBG HCO3 15 mEq/L (21-27); VBG PCO2 25 mmHg (41-51); VBG PH 7.37 pH Units (7.32-7.42); VBG PO2 122 mmHg (25-50)
[2019-05-04 23:31] LABS: Potassium 3.9 mEq/L (3.5-5.1)
[2019-05-05 00:52] LABS: VBG HCO3 25 mEq/L (21-27); VBG PCO2 52 mmHg (41-51); VBG PH 7.29 pH Units (7.32-7.42); VBG PO2 40 mmHg (25-50)
[2019-05-05 01:09] LABS: Potassium 3.9 mEq/L (3.5-5.1)
[2019-05-05] MEDS ORDERED: Dextrose Gel 15 GM/37.5 ML TUBE PO PRN ×2 (02:58)
[2019-05-05] MEDS ORDERED: *HR* Dextrose 50 % in Water (Syg) 50 ML SYRINGE IVP PRN (02:58)
[2019-05-05] MEDS ORDERED: D5% in Water 1,000 ML IVC PRN (02:58)
[2019-05-05 03:23] LABS: Basophils % 0.2 %; Eosinophils % 0.3 %; Hematocrit 42.5 % (37.5-50.1); Immature Granulocytes % 0.6 % (0-4); Lymphocytes # 1.1 K/mcL (0.6-4.6); Lymphocytes % 9.2 %; Mean Corpuscular Hemoglobin 29.1 pg (28.0-33.3); Mean Corpuscular Volume 80.8 fL (83.0-100.0); Mean Platelet Volume 9.5 fL (9.4-12.4); Monocytes # 1.2 K/mcL (0.0-1.3); Monocytes % 9.5 %; Neutrophils # 9.9 K/mcL (1.6-8.9); Platelet Count 203 K/mcL (140-400); Red Blood Count 5.26 M/mcL (4.19-5.50); Red Cell Distribution Width 14.1 % (11.5-14.5); Segmented Neutrophils % 80.2 %; White Blood Count 12.4 K/mcL (4.3-11.1)
[2019-05-05 03:45] LABS: Hemoglobin 15.3 g/dL (12.9-16.9)
[2019-05-05 03:51] LABS: BUN/Creatinine Ratio 36 (6-26); Blood Urea Nitrogen 39 mg/dL (8-23); Calcium 8.4 mg/dL (8.6-10.3); Carbon Dioxide 20 mEq/L (23-29); Chloride 98 mEq/L (98-107); Glucose 95 mg/dL (70-105); Osmolality,Calculated 279 (280-300); Potassium 4.2 mEq/L (3.5-5.1); Sodium 130 mEq/L (136-145); eGFR For African Americans > 60 (> 60); eGFR For Non-African Americans > 60 (> 60)
[2019-05-05] MEDS: Insulin DETEMIR 100 UNIT/ML X5UNITS SQ SCH ×2 (04:06→19:59)
[2019-05-05 04:07] LABS: Troponin I 0.06 ng/mL (< 0.04)
[2019-05-05] MEDS ORDERED: 0.9 % Sodium Chloride 1,000 ML IVC ONE ×2 (05:54→09:13)
[2019-05-05] MEDS ORDERED: 0.9 % Sodium Chloride 2,000 ML ONE (05:57)
[2019-05-05] MEDS ORDERED: *HR* Heparin 5,000 UNIT/ML VIAL SQ SCH (06:00)
[2019-05-05] MEDS: 0.9 % Sodium Chloride 1,000 ML IVC SCH ×2 (08:08→17:47)
[2019-05-05] MEDS ORDERED: Lisinopril 20 MG TABLET PO SCH (09:00)
[2019-05-05] MEDS: Insulin LISPRO 300 UNITS/3 ML VIAL SQ SCH ×4 (09:00→19:55)
[2019-05-05] MEDS: Metoprolol XL (24 HR) Succ 50 MG TAB.ER.24H PO SCH (09:00)
[2019-05-05] MEDS: Aspirin Enteric Coated 81 MG Tablet PO SCH (09:00)
[2019-05-05] MEDS ORDERED: Amiodarone Premix 360 MG/200 ML BAG IVC ONE (11:06)
[2019-05-05] MEDS ORDERED: Amiodarone Premix 150 MG/100 ML BAG IVPB ONE (11:06)
[2019-05-05] MEDS ORDERED: Amiodarone Premix 360 MG/200 ML BAG IVC SCH (11:15)
[2019-05-05] MEDS: Apixaban 5 MG TABLET PO SCH ×2 (12:08→19:54)
[2019-05-06] MEDS: 0.9 % Sodium Chloride 1,000 ML IVC SCH ×4 (02:10→23:14)
[2019-05-06 02:51] LABS: Basophils % 0.2 %; Eosinophils # 0.1 K/mcL (0.0-0.6); Hematocrit 36.9 % (37.5-50.1); Immature Granulocytes % 0.5 % (0-4); Lymphocytes # 1.3 K/mcL (0.6-4.6); Lymphocytes % 14.4 %; Mean Corpuscular HGB Conc 34.1 g/dL (31.6-35.5); Mean Corpuscular Hemoglobin 29.3 pg (28.0-33.3); Mean Corpuscular Volume 85.8 fL (83.0-100.0); Mean Platelet Volume 9.9 fL (9.4-12.4); Monocytes # 0.8 K/mcL (0.0-1.3); Monocytes % 9.3 %; Neutrophils # 6.6 K/mcL (1.6-8.9); Platelet Count 150 K/mcL (140-400); Red Cell Distribution Width 14.4 % (11.5-14.5); Segmented Neutrophils % 74.6 %; White Blood Count 8.8 K/mcL (4.3-11.1)
[2019-05-06 02:54] LABS: Hemoglobin 12.6 g/dL (12.9-16.9)
[2019-05-06 03:09] LABS: BUN/Creatinine Ratio 35 (6-26); Blood Urea Nitrogen 32 mg/dL (8-23); Calcium 7.9 mg/dL (8.6-10.3); Carbon Dioxide 21 mEq/L (23-29); Chloride 102 mEq/L (98-107); Glucose 188 mg/dL (70-105); Magnesium 1.7 mg/dL (1.6-2.6); Osmolality,Calculated 278 (280-300); Phosphorous 1.3 mg/dL (2.7-4.5); Potassium 3.9 mEq/L (3.5-5.1); Sodium 128 mEq/L (136-145); eGFR For African Americans > 60 (> 60); eGFR For Non-African Americans > 60 (> 60)
[2019-05-06] MEDS ORDERED: *HR* Digoxin 0.5 MG/2 ML AMPUL IVP ONE ×2 (05:13→05:30)
[2019-05-06] MEDS ORDERED: *HR* Digoxin 0.25 MG TABLET PO SCH ×2 (05:24→09:00)
[2019-05-06] MEDS: Metoprolol XL (24 HR) Succ 50 MG TAB.ER.24H PO SCH (08:13)
[2019-05-06] MEDS: Apixaban 5 MG TABLET PO SCH ×2 (08:14→20:11)
[2019-05-06] MEDS: Aspirin Enteric Coated 81 MG Tablet PO SCH (08:14)
[2019-05-06] MEDS: Insulin LISPRO 300 UNITS/3 ML VIAL SQ SCH ×4 (08:17→20:12)
[2019-05-06] MEDS ORDERED: Amiodarone Premix 360 MG/200 ML BAG IVC ONE (12:19)
[2019-05-06] MEDS ORDERED: *HR* OxyCODONE/APAP 5/325 TABLET PO PRN (12:30)
[2019-05-06] MEDS: 0.9 % Sodium Chloride w KCl 20 MEQ/1,000 ML MLS IVC SCH (19:29)
[2019-05-06] MEDS: Insulin DETEMIR 100 UNIT/ML X5UNITS SQ SCH (20:12)
[2019-05-06] MEDS: Amiodarone Premix 360 MG/200 ML BAG IVC SCH (20:30)
[2019-05-06] MEDS ORDERED: Acetaminophen IV 1,000 MG/100 ML INFUS..BTL IVPB ONE (23:59)
[2019-05-07 01:29] LABS: Basophils % 0.3 %; Eosinophils # 0.1 K/mcL (0.0-0.6); Eosinophils % 1.2 %; Hematocrit 37.5 % (37.5-50.1); Hemoglobin 12.9 g/dL (12.9-16.9); Immature Granulocytes % 0.7 % (0-4); Lymphocytes # 1.2 K/mcL (0.6-4.6); Lymphocytes % 15.5 %; Mean Corpuscular HGB Conc 34.4 g/dL (31.6-35.5); Mean Corpuscular Hemoglobin 29.1 pg (28.0-33.3); Mean Corpuscular Volume 84.7 fL (83.0-100.0); Mean Platelet Volume 9.9 fL (9.4-12.4); Monocytes # 0.8 K/mcL (0.0-1.3); Monocytes % 10.7 %; Neutrophils # 5.4 K/mcL (1.6-8.9); Platelet Count 140 K/mcL (140-400); Red Blood Count 4.43 M/mcL (4.19-5.50); Red Cell Distribution Width 14.5 % (11.5-14.5); Segmented Neutrophils % 71.6 %; White Blood Count 7.5 K/mcL (4.3-11.1)
[2019-05-07 01:45] LABS: BUN/Creatinine Ratio 27 (6-26); Blood Urea Nitrogen 30 mg/dL (8-23); Calcium 7.8 mg/dL (8.6-10.3); Carbon Dioxide 22 mEq/L (23-29); Chloride 104 mEq/L (98-107); Glucose 243 mg/dL (70-105); Magnesium 1.4 mg/dL (1.6-2.6); Osmolality,Calculated 292 (280-300); Phosphorous 2.7 mg/dL (2.7-4.5); Potassium 3.7 mEq/L (3.5-5.1); Sodium 134 mEq/L (136-145); eGFR For African Americans > 60 (> 60); eGFR For Non-African Americans > 60 (> 60)
[2019-05-07] MEDS: 0.9 % Sodium Chloride 1,000 ML IVC SCH ×3 (06:43→21:14)
[2019-05-07] MEDS: Insulin LISPRO 300 UNITS/3 ML VIAL SQ SCH ×4 (07:54→21:15)
[2019-05-07] MEDS: Apixaban 5 MG TABLET PO SCH ×2 (07:55→21:14)
[2019-05-07] MEDS: Metoprolol XL (24 HR) Succ 50 MG TAB.ER.24H PO SCH (07:55)
[2019-05-07] MEDS: Aspirin Enteric Coated 81 MG Tablet PO SCH (07:55)
[2019-05-07] MEDS: Amiodarone Premix 360 MG/200 ML BAG IVC SCH (18:25)
[2019-05-07] MEDS: Insulin DETEMIR 100 UNIT/ML X5UNITS SQ SCH (21:14)
[2019-05-08 01:37] LABS: Basophils % 0.2 %; Eosinophils # 0.1 K/mcL (0.0-0.6); Eosinophils % 1.3 %; Hematocrit 40.2 % (37.5-50.1); Hemoglobin 13.7 g/dL (12.9-16.9); Immature Granulocytes % 0.7 % (0-4); Lymphocytes # 1.4 K/mcL (0.6-4.6); Lymphocytes % 15.8 %; Mean Corpuscular HGB Conc 34.1 g/dL (31.6-35.5); Monocytes # 0.7 K/mcL (0.0-1.3); Monocytes % 8.4 %; Neutrophils # 6.4 K/mcL (1.6-8.9); Platelet Count 136 K/mcL (140-400); Red Blood Count 4.73 M/mcL (4.19-5.50); Segmented Neutrophils % 73.6 %; White Blood Count 8.6 K/mcL (4.3-11.1)
[2019-05-08 01:58] LABS: BUN/Creatinine Ratio 33 (6-26); Blood Urea Nitrogen 29 mg/dL (8-23); Calcium 7.5 mg/dL (8.6-10.3); Carbon Dioxide 18 mEq/L (23-29); Chloride 110 mEq/L (98-107); Glucose 224 mg/dL (70-105); Magnesium 1.4 mg/dL (1.6-2.6); Osmolality,Calculated 289 (280-300); Phosphorous 2.2 mg/dL (2.7-4.5); Potassium 3.5 mEq/L (3.5-5.1); Sodium 133 mEq/L (136-145); eGFR For African Americans > 60 (> 60); eGFR For Non-African Americans > 60 (> 60)
[2019-05-08] MEDS: Amiodarone Premix 360 MG/200 ML BAG IVC SCH (05:32)
[2019-05-08] MEDS: 0.9 % Sodium Chloride 1,000 ML IVC SCH ×2 (05:33→14:14)
[2019-05-08] MEDS: Aspirin Enteric Coated 81 MG Tablet PO SCH (08:34)
[2019-05-08] MEDS: Metoprolol XL (24 HR) Succ 50 MG TAB.ER.24H PO SCH (08:34)
[2019-05-08] MEDS: Apixaban 5 MG TABLET PO SCH ×2 (08:34→20:48)
[2019-05-08] MEDS: Sacubitril/Valsartan 24/26 MG 1 TABLET PO SCH (08:34)
[2019-05-08] MEDS: Insulin LISPRO 300 UNITS/3 ML VIAL SQ SCH ×4 (08:36→20:50)
[2019-05-08] MEDS: Piperacillin/Tazobactam 3.375 GM in 0.9 % Sodium Chloride Mini Bag 100 ML IVPB SCH (20:48)
[2019-05-08] MEDS: Insulin DETEMIR 100 UNIT/ML X5UNITS SQ SCH (20:49)
[2019-05-09] MEDS: Piperacillin/Tazobactam 3.375 GM in 0.9 % Sodium Chloride Mini Bag 100 ML IVPB SCH ×3 (00:45→16:34)
[2019-05-09] MEDS: 0.9 % Sodium Chloride 1,000 ML IVC SCH ×3 (01:45→22:15)
[2019-05-09] MEDS: Amiodarone Premix 360 MG/200 ML BAG IVC SCH (04:24)
[2019-05-09 04:52] LABS: Basophils % 0.3 %; Eosinophils # 0.1 K/mcL (0.0-0.6); Eosinophils % 1.3 %; Hematocrit 39.2 % (37.5-50.1); Hemoglobin 13.6 g/dL (12.9-16.9); Immature Granulocytes % 0.6 % (0-4); Lymphocytes # 1.2 K/mcL (0.6-4.6); Lymphocytes % 14.1 %; Mean Corpuscular HGB Conc 34.7 g/dL (31.6-35.5); Mean Corpuscular Hemoglobin 29.4 pg (28.0-33.3); Mean Corpuscular Volume 84.8 fL (83.0-100.0); Mean Platelet Volume 9.5 fL (9.4-12.4); Monocytes # 0.7 K/mcL (0.0-1.3); Monocytes % 8.3 %; Neutrophils # 6.5 K/mcL (1.6-8.9); Nucleated Red Blood Cells 0.2 /100 WBC (0); Platelet Count 142 K/mcL (140-400); Red Blood Count 4.62 M/mcL (4.19-5.50); Red Cell Distribution Width 15.1 % (11.5-14.5); Segmented Neutrophils % 75.4 %; White Blood Count 8.6 K/mcL (4.3-11.1)
[2019-05-09 05:11] LABS: BUN/Creatinine Ratio 33 (6-26); Blood Urea Nitrogen 22 mg/dL (8-23); Calcium 7.5 mg/dL (8.6-10.3); Carbon Dioxide 16 mEq/L (23-29); Chloride 114 mEq/L (98-107); Glucose 113 mg/dL (70-105); Magnesium 1.3 mg/dL (1.6-2.6); Osmolality,Calculated 288 (280-300); Phosphorous 1.7 mg/dL (2.7-4.5); Potassium 3.2 mEq/L (3.5-5.1); Sodium 137 mEq/L (136-145); eGFR For African Americans > 60 (> 60); eGFR For Non-African Americans > 60 (> 60)
[2019-05-09] MEDS ORDERED: Potassium Phosphate 44 MEQ in 0.9 % Sodium Chloride 250 ML IVPB ONE (07:38)
[2019-05-09] MEDS ORDERED: Potassium Chloride Elixir 20 MEQ/15 ML UDC PO SCH (07:45)
[2019-05-09] MEDS: Apixaban 5 MG TABLET PO SCH ×2 (09:27→20:21)
[2019-05-09] MEDS: Metoprolol XL (24 HR) Succ 50 MG TAB.ER.24H PO SCH (09:27)
[2019-05-09] MEDS: Aspirin Enteric Coated 81 MG Tablet PO SCH (09:27)
[2019-05-09] MEDS: Sacubitril/Valsartan 24/26 MG 1 TABLET PO SCH (09:28)
[2019-05-09] MEDS: Insulin LISPRO 300 UNITS/3 ML VIAL SQ SCH ×5 (10:02→22:14)
[2019-05-09 10:59] LABS: C-Reactive Protein 15 mg/L (Less than 10)
[2019-05-09 11:25] LABS: Estimated Average Glucose > 427 mg/dL
[2019-05-09] MEDS: *HR* Amiodarone 200 MG TABLET PO SCH ×2 (11:36→20:20)
[2019-05-09] MEDS: Insulin DETEMIR 100 UNIT/ML X5UNITS SQ SCH (20:21)
[2019-05-10] MEDS: Piperacillin/Tazobactam 3.375 GM in 0.9 % Sodium Chloride Mini Bag 100 ML IVPB SCH ×3 (00:30→16:57)
[2019-05-10 02:21] LABS: Basophils % 0.4 %; Eosinophils # 0.1 K/mcL (0.0-0.6); Eosinophils % 1.4 %; Hematocrit 38.7 % (37.5-50.1); Hemoglobin 13.1 g/dL (12.9-16.9); Immature Granulocytes % 0.4 % (0-4); Lymphocytes % 11.2 %; Mean Corpuscular HGB Conc 33.9 g/dL (31.6-35.5); Mean Corpuscular Hemoglobin 29.4 pg (28.0-33.3); Mean Platelet Volume 10.3 fL (9.4-12.4); Monocytes # 0.9 K/mcL (0.0-1.3); Platelet Count 160 K/mcL (140-400); Red Blood Count 4.45 M/mcL (4.19-5.50); Red Cell Distribution Width 15.4 % (11.5-14.5); Segmented Neutrophils % 76.6 %; White Blood Count 9.1 K/mcL (4.3-11.1)
[2019-05-10 02:42] LABS: BUN/Creatinine Ratio 29 (6-26); Blood Urea Nitrogen 23 mg/dL (8-23); Calcium 7.6 mg/dL (8.6-10.3); Carbon Dioxide 15 mEq/L (23-29); Chloride 117 mEq/L (98-107); Glucose 161 mg/dL (70-105); Magnesium 1.5 mg/dL (1.6-2.6); Osmolality,Calculated 295 (280-300); Phosphorous 2.4 mg/dL (2.7-4.5); Potassium 3.7 mEq/L (3.5-5.1); Sodium 139 mEq/L (136-145); eGFR For African Americans > 60 (> 60); eGFR For Non-African Americans > 60 (> 60)
[2019-05-10] MEDS: Insulin LISPRO 300 UNITS/3 ML VIAL SQ SCH ×4 (09:48→22:03)
[2019-05-10] MEDS: Metoprolol XL (24 HR) Succ 50 MG TAB.ER.24H PO SCH (10:00)
[2019-05-10] MEDS: Sacubitril/Valsartan 24/26 MG 1 TABLET PO SCH (10:00)
[2019-05-10] MEDS: Apixaban 5 MG TABLET PO SCH ×2 (10:00→22:01)
[2019-05-10] MEDS: Aspirin Enteric Coated 81 MG Tablet PO SCH (10:00)
[2019-05-10] MEDS: *HR* Amiodarone 200 MG TABLET PO SCH ×2 (10:00→22:01)
[2019-05-10] MEDS: Insulin DETEMIR 100 UNIT/ML X5UNITS SQ SCH (22:01)
[2019-05-11] MEDS: Piperacillin/Tazobactam 3.375 GM in 0.9 % Sodium Chloride Mini Bag 100 ML IVPB SCH ×3 (01:34→16:58)
[2019-05-11] MEDS: Insulin LISPRO 300 UNITS/3 ML VIAL SQ SCH ×4 (08:29→20:23)
[2019-05-11] MEDS: Furosemide 40 MG TABLET PO SCH (08:32)
[2019-05-11] MEDS: Apixaban 5 MG TABLET PO SCH ×2 (08:32→20:25)
[2019-05-11] MEDS: Aspirin Enteric Coated 81 MG Tablet PO SCH (08:33)
[2019-05-11] MEDS: Spironolactone 25 MG TABLET PO SCH (08:33)
[2019-05-11] MEDS: Sacubitril/Valsartan 24/26 MG 1 TABLET PO SCH (08:33)
[2019-05-11] MEDS: Metoprolol XL (24 HR) Succ 50 MG TAB.ER.24H PO SCH (08:33)
[2019-05-11] MEDS: *HR* Amiodarone 200 MG TABLET PO SCH ×2 (08:35→20:25)
[2019-05-11 10:59] LABS: Basophils % 0.3 %; Eosinophils # 0.1 K/mcL (0.0-0.6); Eosinophils % 1.7 %; Hemoglobin 13.8 g/dL (12.9-16.9); Immature Granulocytes % 0.6 % (0-4); Lymphocytes # 1.2 K/mcL (0.6-4.6); Mean Corpuscular HGB Conc 33.7 g/dL (31.6-35.5); Mean Corpuscular Hemoglobin 28.9 pg (28.0-33.3); Mean Corpuscular Volume 85.8 fL (83.0-100.0); Mean Platelet Volume 9.1 fL (9.4-12.4); Monocytes # 0.8 K/mcL (0.0-1.3); Neutrophils # 5.7 K/mcL (1.6-8.9); Platelet Count 189 K/mcL (140-400); Red Blood Count 4.78 M/mcL (4.19-5.50); Red Cell Distribution Width 16.3 % (11.5-14.5); Segmented Neutrophils % 72.4 %; White Blood Count 7.9 K/mcL (4.3-11.1)
[2019-05-11 11:18] LABS: BUN/Creatinine Ratio 26 (6-26); Blood Urea Nitrogen 20 mg/dL (8-23); Carbon Dioxide 17 mEq/L (23-29); Chloride 115 mEq/L (98-107); Glucose 164 mg/dL (70-105); Magnesium 1.7 mg/dL (1.6-2.6); Osmolality,Calculated 298 (280-300); Phosphorous 2.3 mg/dL (2.7-4.5); Potassium 3.8 mEq/L (3.5-5.1); Sodium 141 mEq/L (136-145); eGFR For African Americans > 60 (> 60); eGFR For Non-African Americans > 60 (> 60)
[2019-05-11] MEDS: 0.9 % Sodium Chloride 1,000 ML IVC SCH (19:27)
[2019-05-11] MEDS: Insulin DETEMIR 100 UNIT/ML X5UNITS SQ SCH (20:23)
[2019-05-12] MEDS: Piperacillin/Tazobactam 3.375 GM in 0.9 % Sodium Chloride Mini Bag 100 ML IVPB SCH ×3 (00:11→19:59)
[2019-05-12 02:28] LABS: BUN/Creatinine Ratio 21 (6-26); Blood Urea Nitrogen 18 mg/dL (8-23); Calcium 7.8 mg/dL (8.6-10.3); Carbon Dioxide 20 mEq/L (23-29); Chloride 116 mEq/L (98-107); Glucose 161 mg/dL (70-105); Magnesium 1.6 mg/dL (1.6-2.6); Osmolality,Calculated 301 (280-300); Potassium 3.5 mEq/L (3.5-5.1); Sodium 143 mEq/L (136-145); eGFR For African Americans > 60 (> 60); eGFR For Non-African Americans > 60 (> 60)
[2019-05-12] MEDS: Aspirin Enteric Coated 81 MG Tablet PO SCH (08:05)
[2019-05-12] MEDS: Spironolactone 25 MG TABLET PO SCH (08:05)
[2019-05-12] MEDS: Apixaban 5 MG TABLET PO SCH ×2 (08:05→21:04)
[2019-05-12] MEDS: Sacubitril/Valsartan 24/26 MG 1 TABLET PO SCH (08:05)
[2019-05-12] MEDS: *HR* Amiodarone 200 MG TABLET PO SCH ×2 (08:05→21:05)
[2019-05-12] MEDS: Furosemide 40 MG TABLET PO SCH (08:05)
[2019-05-12] MEDS: Metoprolol XL (24 HR) Succ 50 MG TAB.ER.24H PO SCH (08:06)
[2019-05-12] MEDS: Insulin LISPRO 300 UNITS/3 ML VIAL SQ SCH ×4 (08:08→21:06)
[2019-05-12] MEDS ORDERED: Aminoglycoside Consult 1 EACH MC ONE (09:59)
[2019-05-12] MEDS: Insulin DETEMIR 100 UNIT/ML X5UNITS SQ SCH ×2 (12:26→21:06)
[2019-05-13] MEDS: Piperacillin/Tazobactam 3.375 GM in 0.9 % Sodium Chloride Mini Bag 100 ML IVPB SCH ×2 (00:06→09:02)
[2019-05-13] MEDS: Spironolactone 25 MG TABLET PO SCH (08:57)
[2019-05-13] MEDS: Aspirin Enteric Coated 81 MG Tablet PO SCH (08:57)
[2019-05-13] MEDS: *HR* Amiodarone 200 MG TABLET PO SCH ×2 (08:57→21:00)
[2019-05-13] MEDS: Apixaban 5 MG TABLET PO SCH (08:58)
[2019-05-13] MEDS: Furosemide 40 MG TABLET PO SCH (08:58)
[2019-05-13] MEDS: Metoprolol XL (24 HR) Succ 50 MG TAB.ER.24H PO SCH (08:58)
[2019-05-13] MEDS: Insulin LISPRO 300 UNITS/3 ML VIAL SQ SCH ×4 (09:04→21:01)
[2019-05-13] MEDS: Insulin DETEMIR 100 UNIT/ML X5UNITS SQ SCH (09:11)
[2019-05-13] MEDS: Sacubitril/Valsartan 24/26 MG 1 TABLET PO SCH (09:11)
[2019-05-13] MEDS ORDERED: Furosemide 40 MG/4 ML VIAL IVP ONE (10:41)
[2019-05-13 11:28] LABS: BUN/Creatinine Ratio 16 (6-26); Blood Urea Nitrogen 16 mg/dL (8-23); Carbon Dioxide 25 mEq/L (23-29); Chloride 109 mEq/L (98-107); Glucose 385 mg/dL (70-105); Osmolality,Calculated 309 (280-300); Potassium 3.9 mEq/L (3.5-5.1); Sodium 141 mEq/L (136-145); eGFR For African Americans > 60 (> 60); eGFR For Non-African Americans > 60 (> 60)
[2019-05-13] MEDS ORDERED: Insulin LISPRO 300 UNITS/3 ML VIAL SQ SCH (17:00)
[2019-05-13] MEDS ORDERED: Lactobacillus 1 EACH CAP.SPRINK PO SCH (21:00)
[2019-05-13] MEDS ORDERED: Insulin DETEMIR 100 UNIT/ML X5UNITS SQ SCH (21:00)
[2019-05-14] MEDS: Metoprolol XL (24 HR) Succ 50 MG TAB.ER.24H PO SCH (05:56)
[2019-05-14 06:05] LABS: Hematocrit 36.6 % (37.5-50.1); Mean Corpuscular HGB Conc 32.8 g/dL (31.6-35.5); Mean Corpuscular Hemoglobin 28.9 pg (28.0-33.3); Mean Corpuscular Volume 88.2 fL (83.0-100.0); Mean Platelet Volume 8.6 fL (9.4-12.4); Platelet Count 159 K/mcL (140-400); Red Blood Count 4.15 M/mcL (4.19-5.50); Red Cell Distribution Width 17.1 % (11.5-14.5); White Blood Count 8.1 K/mcL (4.3-11.1)
[2019-05-14 06:19] LABS: BUN/Creatinine Ratio 19 (6-26); Blood Urea Nitrogen 17 mg/dL (8-23); Calcium 8.3 mg/dL (8.6-10.3); Carbon Dioxide 29 mEq/L (23-29); Chloride 110 mEq/L (98-107); Glucose 148 mg/dL (70-105); Osmolality,Calculated 302 (280-300); Potassium 3.2 mEq/L (3.5-5.1); Sodium 144 mEq/L (136-145); eGFR For African Americans > 60 (> 60); eGFR For Non-African Americans > 60 (> 60)
[2019-05-14] MEDS ORDERED: *HR* Succinylcholine 200 MG/10 ML VIAL IVP ONE (07:13)
[2019-05-14] MEDS ORDERED: *HR* Phenylephrine 10 MG/ML VIAL ONE (07:13)
[2019-05-14] MEDS ORDERED: Dexamethasone 4 MG/ML VIAL ONE (07:13)
[2019-05-14] MEDS ORDERED: *HR* Propofol 200 MG/20 ML VIAL IVP ONE (07:13)
[2019-05-14] MEDS ORDERED: *HR* Midazolam HCl 2 MG/2 ML VIAL ONE (07:13)
[2019-05-14] MEDS ORDERED: Lidocaine -MPF 4% 5 ML AMPUL ONE (07:13)
[2019-05-14] MEDS ORDERED: Lidocaine -MPF 2% 2 ML VIAL ONE (07:13)
[2019-05-14] MEDS ORDERED: *HR* FentaNYL (PF) 100 MCG/2 ML VIAL ONE (07:13)
[2019-05-14] MEDS ORDERED: Ondansetron 4 MG/2 ML VIAL ONE (07:13)
[2019-05-14] MEDS ORDERED: Piperacillin/Tazobactam 3.375 GM in 0.9 % Sodium Chloride Mini Bag 100 ML IVPB ONE (07:33)
[2019-05-14] MEDS ORDERED: Heparin 1,000 UNITS/500 mL 500 ML ONE (08:00)
[2019-05-14] MEDS ORDERED: Vancomycin 1,000 MG, Sodium Chloride IRRigation 1,000 ML IR ONE (08:00)
[2019-05-14] MEDS ORDERED: Vancomycin 1,000 MG VIAL ONE (08:00)
[2019-05-14] MEDS ORDERED: *HR* Vasopressin 20 UNIT/ML VIAL ONE (08:02)
[2019-05-14] MEDS ORDERED: Famotidine 20 MG/2 ML VIAL ONE (08:11)
[2019-05-14] MEDS ORDERED: Acetaminophen IV 1,000 MG/100 ML INFUS..BTL ONE (08:11)
[2019-05-14] MEDS ORDERED: *HR* Rocuronium Bromide 50 MG/5 ML VIAL ONE ×2 (08:23→11:17)
[2019-05-14] MEDS ORDERED: *HR* Magnesium Sulfate 1 GM/2 ML VIAL ONE (08:28)
[2019-05-14] MEDS ORDERED: EPHEDrine 50 MG/ML VIAL ONE (08:44)
[2019-05-14] MEDS ORDERED: *HR* Heparin 5,000 UNIT/ML VIAL ONE (09:21)
[2019-05-14] MEDS ORDERED: Albumin Human 5% 25.0 GM/500 ML VIAL ONE (11:41)
[2019-05-14] MEDS ORDERED: Protamine Sulfate 50 MG/5 ML VIAL IVP ONE (11:51)
[2019-05-14] MEDS ORDERED: *HR* OxyCODONE Immed Rel 5 MG TABLET PO PRN ×3 (12:37→13:54)
[2019-05-14] MEDS ORDERED: *HR* Promethazine 25 MG/ML VIAL IVP PRN (12:37)
[2019-05-14] MEDS ORDERED: *HR* HYDROmorphone 2 MG TABLET PO PRN (12:37)
[2019-05-14] MEDS ORDERED: *HR* HYDROmorphone (PF) 1 MG/ML SYRINGE IVP PRN (12:37)
[2019-05-14] MEDS ORDERED: *HR* Labetalol 20 MG/4 ML SYRINGE IVP PRN ×2 (12:37→13:54)
[2019-05-14] MEDS ORDERED: D5% in Water 1,000 ML IVC PRN (13:54)
[2019-05-14] MEDS ORDERED: *HR* Dextrose 50 % in Water (Syg) 50 ML SYRINGE IVP PRN ×3 (13:54)
[2019-05-14] MEDS ORDERED: Dextrose Gel 15 GM/37.5 ML TUBE PO PRN ×2 (13:54)
[2019-05-14] MEDS ORDERED: Naloxone 0.4 MG/ML INJ IVP PRN (13:54)
[2019-05-14] MEDS ORDERED: Acetaminophen 325 MG TABLET PO PRN (13:54)
[2019-05-14] MEDS ORDERED: Ondansetron 4 MG/2 ML VIAL IVP PRN (13:54)
[2019-05-14] MEDS ORDERED: 0.9 % Sodium Chloride 1,000 ML IVC SCH (13:54)
[2019-05-14] MEDS ORDERED: *HR* HYDROcodone/Acet 5/325 mg TABLET PO PRN ×2 (13:54)
[2019-05-14] MEDS: *HR* Metoprolol 5 MG/5 ML VIAL IVP SCH ×3 (15:33→23:11)
[2019-05-14] MEDS: 0.9 % Sodium Chloride 500 ML IVC SCH ×2 (17:56→23:42)
[2019-05-14] MEDS: Insulin LISPRO 300 UNITS/3 ML VIAL SQ SCH ×2 (17:57→18:30)
[2019-05-14] MEDS ORDERED: 0.9 % Sodium Chloride 500 ML IVC ONE (18:23)
[2019-05-14 18:41] LABS: Hematocrit 27.5 % (37.5-50.1)
[2019-05-14 18:42] LABS: Hemoglobin 9.3 g/dL (12.9-16.9)
[2019-05-14] MEDS ORDERED: Insulin LISPRO 300 UNITS/3 ML VIAL SQ SCH (21:00)
[2019-05-14] MEDS ORDERED: Apixaban 5 MG TABLET PO SCH (21:00)
[2019-05-14] MEDS: Lactobacillus 1 EACH CAP.SPRINK PO SCH (21:45)
[2019-05-14] MEDS: *HR* Amiodarone 200 MG TABLET PO SCH (21:45)
[2019-05-14] MEDS: Insulin DETEMIR 100 UNIT/ML X5UNITS SQ SCH (21:45)
[2019-05-15 01:42] LABS: Basophils % 0.1 %; Eosinophils # 0.1 K/mcL (0.0-0.6); Eosinophils % 1.4 %; Hematocrit 26.6 % (37.5-50.1); Hemoglobin 8.4 g/dL (12.9-16.9); Immature Granulocytes % 0.3 % (0-4); Lymphocytes # 0.8 K/mcL (0.6-4.6); Lymphocytes % 11.9 %; Mean Corpuscular HGB Conc 31.6 g/dL (31.6-35.5); Mean Corpuscular Hemoglobin 28.8 pg (28.0-33.3); Mean Corpuscular Volume 91.1 fL (83.0-100.0); Mean Platelet Volume 9.5 fL (9.4-12.4); Monocytes # 0.6 K/mcL (0.0-1.3); Monocytes % 8.6 %; Neutrophils # 5.5 K/mcL (1.6-8.9); Platelet Count 128 K/mcL (140-400); Red Blood Count 2.92 M/mcL (4.19-5.50); Red Cell Distribution Width 17.2 % (11.5-14.5); Segmented Neutrophils % 77.7 %; White Blood Count 7.1 K/mcL (4.3-11.1)
[2019-05-15 02:07] LABS: BUN/Creatinine Ratio 19 (6-26); Blood Urea Nitrogen 13 mg/dL (8-23); Calcium 7.8 mg/dL (8.6-10.3); Carbon Dioxide 29 mEq/L (23-29); Chloride 112 mEq/L (98-107); Glucose 109 mg/dL (70-105); Magnesium 1.7 mg/dL (1.6-2.6); Osmolality,Calculated 293 (280-300); Potassium 3.6 mEq/L (3.5-5.1); Sodium 141 mEq/L (136-145); eGFR For African Americans > 60 (> 60); eGFR For Non-African Americans > 60 (> 60)
[2019-05-15] MEDS: *HR* Metoprolol 5 MG/5 ML VIAL IVP SCH ×3 (05:15→17:01)
[2019-05-15] MEDS: Insulin LISPRO 300 UNITS/3 ML VIAL SQ SCH ×5 (08:13→16:58)
[2019-05-15] MEDS: Spironolactone 25 MG TABLET PO SCH (08:15)
[2019-05-15] MEDS: *HR* Amiodarone 200 MG TABLET PO SCH ×2 (08:15→21:22)
[2019-05-15] MEDS: Lactobacillus 1 EACH CAP.SPRINK PO SCH ×2 (08:15→21:22)
[2019-05-15] MEDS: Sacubitril/Valsartan 24/26 MG 1 TABLET PO SCH (08:15)
[2019-05-15] MEDS: Aspirin Enteric Coated 81 MG Tablet PO SCH (08:15)
[2019-05-15] MEDS: Furosemide 40 MG TABLET PO SCH (08:16)
[2019-05-15] MEDS: Insulin DETEMIR 100 UNIT/ML X5UNITS SQ SCH ×2 (08:21→21:22)
[2019-05-15 11:09] LABS: Albumin 2.5 g/dL (3.5-5.7); Albumin/Globulin Ratio 1.6 (1.1-2.2); Bilirubin,Direct 0.1 mg/dL (0.0-0.2); Bilirubin,Indirect 0.2 mg/dL (0.0-1.0); Bilirubin,Total 0.3 mg/dL (0.3-1.0); Globulin 1.6 g/dL (2.4-3.5); Total Protein 4.1 g/dL (6.4-8.9)
[2019-05-15] MEDS: Metoprolol XL (24 HR) Succ 50 MG TAB.ER.24H PO SCH (12:12)
[2019-05-15] MEDS: Acetaminophen 325 MG TABLET PO PRN (16:57)
[2019-05-16] MEDS: *HR* Metoprolol 5 MG/5 ML VIAL IVP SCH ×4 (00:52→16:47)
[2019-05-16] MEDS: Acetaminophen 325 MG TABLET PO PRN (04:15)
[2019-05-16 06:12] LABS: Basophils % 0.1 %; Eosinophils # 0.1 K/mcL (0.0-0.6); Eosinophils % 1.1 %; Hematocrit 26.3 % (37.5-50.1); Hemoglobin 8.4 g/dL (12.9-16.9); Immature Granulocytes % 0.3 % (0-4); Lymphocytes # 0.8 K/mcL (0.6-4.6); Mean Corpuscular HGB Conc 31.9 g/dL (31.6-35.5); Mean Corpuscular Hemoglobin 29.4 pg (28.0-33.3); Mean Platelet Volume 9.3 fL (9.4-12.4); Monocytes # 0.7 K/mcL (0.0-1.3); Monocytes % 9.8 %; Neutrophils # 5.6 K/mcL (1.6-8.9); Platelet Count 123 K/mcL (140-400); Red Blood Count 2.86 M/mcL (4.19-5.50); Red Cell Distribution Width 17.4 % (11.5-14.5); Segmented Neutrophils % 77.7 %; White Blood Count 7.3 K/mcL (4.3-11.1)
[2019-05-16 06:28] LABS: BUN/Creatinine Ratio 21 (6-26); Blood Urea Nitrogen 18 mg/dL (8-23); Carbon Dioxide 28 mEq/L (23-29); Chloride 108 mEq/L (98-107); Glucose 120 mg/dL (70-105); Magnesium 1.6 mg/dL (1.6-2.6); Osmolality,Calculated 299 (280-300); Potassium 3.6 mEq/L (3.5-5.1); Sodium 143 mEq/L (136-145); eGFR For African Americans > 60 (> 60); eGFR For Non-African Americans > 60 (> 60)
[2019-05-16 06:37] LABS: % Iron Saturation 16 % (20-55); Iron 29 mcg/dL (65-175); Transferrin 132 mg/dL (203-362)
[2019-05-16 06:47] LABS: Ferritin 227 ng/mL (20-250)
[2019-05-16 06:53] LABS: Folate 8.4 ng/mL (3.0-16.0)
[2019-05-16] MEDS: Insulin LISPRO 300 UNITS/3 ML VIAL SQ SCH ×3 (08:00→16:56)
[2019-05-16] MEDS: Lactobacillus 1 EACH CAP.SPRINK PO SCH (08:25)
[2019-05-16] MEDS: Sacubitril/Valsartan 24/26 MG 1 TABLET PO SCH (08:25)
[2019-05-16] MEDS: Metoprolol XL (24 HR) Succ 50 MG TAB.ER.24H PO SCH (08:25)
[2019-05-16] MEDS: Furosemide 40 MG TABLET PO SCH (08:26)
[2019-05-16] MEDS: *HR* Amiodarone 200 MG TABLET PO SCH (08:26)
[2019-05-16] MEDS: Spironolactone 25 MG TABLET PO SCH (08:26)
[2019-05-16] MEDS: Aspirin Enteric Coated 81 MG Tablet PO SCH (08:26)
[2019-05-16] MEDS: Insulin DETEMIR 100 UNIT/ML X5UNITS SQ SCH (08:27)
[2019-05-16 08:28] LABS: Estimated Average Glucose 467 mg/dl
[2019-05-16 16:19] VITALS: BP 100/57
== END 2019-05-16 19:58 | DRG 629 ==
LOC: 2NNU 18:25 → EMEROOARM 18:25 → 2NNU 22:12 → SUATTDRO 05-05 13:25 → 3ANU 05-12 11:05 → 2NNU 05-14 11:17
PROVIDERS: ADMIT Internal Medicine; ATTEND Pharmacist

== ENCOUNTER 2019-05-25 03:19 | Inpatient (IN) ==
[2019-05-25] MEDS ORDERED: Ipratropium/Albuterol Neb 3 ML IH ONE (03:28)
[2019-05-25 03:43] LABS: Basophils % 0.2 %; Eosinophils # 0.1 K/mcL (0.0-0.6); Eosinophils % 1.2 %; Hematocrit 30.8 % (37.5-50.1); Hemoglobin 9.4 g/dL (12.9-16.9); Immature Granulocytes % 0.3 % (0-4); Lymphocytes # 0.7 K/mcL (0.6-4.6); Lymphocytes % 7.6 %; Mean Corpuscular HGB Conc 30.5 g/dL (31.6-35.5); Mean Corpuscular Hemoglobin 29.3 pg (28.0-33.3); Mean Platelet Volume 8.9 fL (9.4-12.4); Monocytes # 0.8 K/mcL (0.0-1.3); Monocytes % 8.7 %; Neutrophils # 7.7 K/mcL (1.6-8.9); Platelet Count 374 K/mcL (140-400); Red Blood Count 3.21 M/mcL (4.19-5.50); Red Cell Distribution Width 18.6 % (11.5-14.5); White Blood Count 9.4 K/mcL (4.3-11.1)
[2019-05-25 03:48] LABS: Prothrombin Time 22.3 Seconds (9.4-12.1)
[2019-05-25] MEDS ORDERED: Isovue-370 500 ML BOTTLE IVP ONE (04:06)
[2019-05-25 04:09] LABS: Alanine Aminotransferase 16 Units/L (7-52); Albumin 2.7 g/dL (3.5-5.7); Alkaline Phosphatase 83 Units/L (34-104); Aspartate Amino Transferase 14 Units/L (13-39); BUN/Creatinine Ratio 20 (6-26); Bilirubin,Total 0.4 mg/dL (0.3-1.0); Blood Urea Nitrogen 14 mg/dL (8-23); Calcium 8.1 mg/dL (8.6-10.3); Carbon Dioxide 37 mEq/L (23-29); Chloride 99 mEq/L (98-107); Globulin 2.7 g/dL (2.4-3.5); Glucose 198 mg/dL (70-105); Osmolality,Calculated 298 (280-300); Potassium 3.7 mEq/L (3.5-5.1); Sodium 141 mEq/L (136-145); Total Protein 5.4 g/dL (6.4-8.9); eGFR For African Americans > 60 (> 60); eGFR For Non-African Americans > 60 (> 60)
[2019-05-25 04:11] LABS: Troponin I 0.03 ng/mL (< 0.04)
[2019-05-25] MEDS ORDERED: Furosemide 80 MG in 0.9 % Sodium Chloride 50 ML IVPB ONE (04:21)
[2019-05-25] MEDS ORDERED: Furosemide 40 MG/4 ML VIAL IVP ONE (04:22)
[2019-05-25] MEDS ORDERED: Naloxone 0.4 MG/ML INJ IVP PRN (08:22)
[2019-05-25] MEDS: Insulin LISPRO 300 UNITS/3 ML VIAL SQ SCH ×2 (12:11→16:30)
[2019-05-25] MEDS: *HR* Amiodarone 200 MG TABLET PO SCH (21:53)
[2019-05-25] MEDS: Insulin DETEMIR 100 UNIT/ML X5UNITS SQ SCH (21:53)
[2019-05-25] MEDS: Apixaban 5 MG TABLET PO SCH (21:53)
[2019-05-26] MEDS: Furosemide 40 MG/4 ML VIAL IVP SCH ×2 (08:34→16:58)
[2019-05-26] MEDS: Insulin LISPRO 300 UNITS/3 ML VIAL SQ SCH ×3 (08:34→16:58)
[2019-05-26] MEDS: Insulin DETEMIR 100 UNIT/ML X5UNITS SQ SCH ×2 (08:34→20:48)
[2019-05-26] MEDS: Aspirin Enteric Coated 81 MG Tablet PO SCH (08:35)
[2019-05-26] MEDS: *HR* Amiodarone 200 MG TABLET PO SCH ×2 (08:35→20:48)
[2019-05-26] MEDS: Spironolactone 25 MG TABLET PO SCH (08:35)
[2019-05-26] MEDS: Metoprolol XL (24 HR) Succ 50 MG TAB.ER.24H PO SCH (08:35)
[2019-05-26] MEDS: Multivit/Ca/Min/Fe/FA 1 TAB TABLET PO SCH (08:35)
[2019-05-26] MEDS: Apixaban 5 MG TABLET PO SCH ×2 (08:35→20:48)
[2019-05-26] MEDS: Sacubitril/Valsartan 24/26 MG 1 TABLET PO SCH (08:35)
[2019-05-26 08:57] LABS: BUN/Creatinine Ratio 20 (6-26); Blood Urea Nitrogen 13 mg/dL (8-23); Calcium 7.5 mg/dL (8.6-10.3); Carbon Dioxide 40 mEq/L (23-29); Chloride 99 mEq/L (98-107); Glucose 231 mg/dL (70-105); Magnesium 1.8 mg/dL (1.6-2.6); Osmolality,Calculated 299 (280-300); Potassium 3.6 mEq/L (3.5-5.1); Sodium 141 mEq/L (136-145); eGFR For African Americans > 60 (> 60); eGFR For Non-African Americans > 60 (> 60)
[2019-05-26] MEDS ORDERED: Furosemide 40 MG TABLET PO SCH (09:00)
[2019-05-27 05:50] LABS: Hematocrit 27.4 % (37.5-50.1); Hemoglobin 8.1 g/dL (12.9-16.9); Mean Corpuscular HGB Conc 29.6 g/dL (31.6-35.5); Mean Corpuscular Hemoglobin 29.3 pg (28.0-33.3); Mean Corpuscular Volume 99.3 fL (83.0-100.0); Mean Platelet Volume 8.9 fL (9.4-12.4); Platelet Count 355 K/mcL (140-400); Red Blood Count 2.76 M/mcL (4.19-5.50); Red Cell Distribution Width 18.4 % (11.5-14.5); White Blood Count 9.1 K/mcL (4.3-11.1)
[2019-05-27 05:52] LABS: VBG HCO3 40 mEq/L (21-27); VBG PCO2 67 mmHg (41-51); VBG PH 7.39 pH Units (7.32-7.42); VBG PO2 62 mmHg (25-50)
[2019-05-27 06:15] LABS: BUN/Creatinine Ratio 24 (6-26); Blood Urea Nitrogen 20 mg/dL (8-23); Calcium 7.5 mg/dL (8.6-10.3); Carbon Dioxide 40 mEq/L (23-29); Chloride 97 mEq/L (98-107); Glucose 213 mg/dL (70-105); Magnesium 1.8 mg/dL (1.6-2.6); Osmolality,Calculated 301 (280-300); Potassium 3.5 mEq/L (3.5-5.1); Sodium 141 mEq/L (136-145); eGFR For African Americans > 60 (> 60); eGFR For Non-African Americans > 60 (> 60)
[2019-05-27] MEDS: Aspirin Enteric Coated 81 MG Tablet PO SCH (10:07)
[2019-05-27] MEDS: Spironolactone 25 MG TABLET PO SCH (10:07)
[2019-05-27] MEDS: Metoprolol XL (24 HR) Succ 50 MG TAB.ER.24H PO SCH (10:08)
[2019-05-27] MEDS: Sacubitril/Valsartan 24/26 MG 1 TABLET PO SCH (10:08)
[2019-05-27] MEDS: Multivit/Ca/Min/Fe/FA 1 TAB TABLET PO SCH (10:08)
[2019-05-27] MEDS: Apixaban 5 MG TABLET PO SCH ×2 (10:08→20:34)
[2019-05-27] MEDS: *HR* Amiodarone 200 MG TABLET PO SCH ×2 (10:08→20:34)
[2019-05-27] MEDS: Insulin LISPRO 300 UNITS/3 ML VIAL SQ SCH ×3 (10:09→18:27)
[2019-05-27] MEDS: Furosemide 40 MG/4 ML VIAL IVP SCH ×2 (10:14→18:27)
[2019-05-27] MEDS: Insulin DETEMIR 100 UNIT/ML X5UNITS SQ SCH ×2 (10:14→20:34)
[2019-05-27] MEDS: *HR* HYDROcodone/Acet 5/325 mg TABLET PO PRN (15:14)
[2019-05-27] MEDS ORDERED: Dextrose Gel 15 GM/37.5 ML TUBE PO PRN ×2 (21:05)
[2019-05-27] MEDS ORDERED: D5% in Water 1,000 ML IVC PRN (21:05)
[2019-05-27] MEDS ORDERED: *HR* Dextrose 50 % in Water (Syg) 50 ML SYRINGE IVP PRN (21:05)
[2019-05-28] MEDS: Insulin LISPRO 300 UNITS/3 ML VIAL SQ SCH ×4 (00:49→17:46)
[2019-05-28] MEDS: *HR* HYDROcodone/Acet 5/325 mg TABLET PO PRN (06:52)
[2019-05-28] MEDS: Aspirin Enteric Coated 81 MG Tablet PO SCH (09:36)
[2019-05-28] MEDS: Spironolactone 25 MG TABLET PO SCH (09:36)
[2019-05-28] MEDS: *HR* Amiodarone 200 MG TABLET PO SCH ×2 (09:37→20:23)
[2019-05-28] MEDS: Apixaban 5 MG TABLET PO SCH ×2 (09:37→20:23)
[2019-05-28] MEDS: Metoprolol XL (24 HR) Succ 50 MG TAB.ER.24H PO SCH (09:37)
[2019-05-28] MEDS: Multivit/Ca/Min/Fe/FA 1 TAB TABLET PO SCH (09:37)
[2019-05-28] MEDS: Sacubitril/Valsartan 24/26 MG 1 TABLET PO SCH (09:37)
[2019-05-28] MEDS: Furosemide 40 MG/4 ML VIAL IVP SCH ×2 (09:37→17:46)
[2019-05-28 09:40] LABS: BUN/Creatinine Ratio 24 (6-26); Blood Urea Nitrogen 20 mg/dL (8-23); Calcium 8.1 mg/dL (8.6-10.3); Carbon Dioxide 39 mEq/L (23-29); Chloride 95 mEq/L (98-107); Glucose 139 mg/dL (70-105); Osmolality,Calculated 295 (280-300); Potassium 3.7 mEq/L (3.5-5.1); Sodium 140 mEq/L (136-145); eGFR For African Americans > 60 (> 60); eGFR For Non-African Americans > 60 (> 60)
[2019-05-28] MEDS: Insulin DETEMIR 100 UNIT/ML X5UNITS SQ SCH ×2 (09:47→20:23)
[2019-05-29] MEDS: *HR* HYDROcodone/Acet 5/325 mg TABLET PO PRN (01:47)
[2019-05-29 05:24] LABS: BUN/Creatinine Ratio 30 (6-26); Blood Urea Nitrogen 28 mg/dL (8-23); Calcium 7.9 mg/dL (8.6-10.3); Carbon Dioxide 36 mEq/L (23-29); Chloride 95 mEq/L (98-107); Glucose 275 mg/dL (70-105); Osmolality,Calculated 297 (280-300); Potassium 3.8 mEq/L (3.5-5.1); Sodium 136 mEq/L (136-145); eGFR For African Americans > 60 (> 60); eGFR For Non-African Americans > 60 (> 60)
[2019-05-29] MEDS: Insulin DETEMIR 100 UNIT/ML X5UNITS SQ SCH ×2 (08:27→17:49)
[2019-05-29] MEDS: Furosemide 40 MG/4 ML VIAL IVP SCH ×2 (08:27→17:49)
[2019-05-29] MEDS: Insulin LISPRO 300 UNITS/3 ML VIAL SQ SCH ×5 (08:27→21:52)
[2019-05-29] MEDS: Aspirin Enteric Coated 81 MG Tablet PO SCH (08:28)
[2019-05-29] MEDS: *HR* Amiodarone 200 MG TABLET PO SCH ×2 (08:28→21:24)
[2019-05-29] MEDS: Apixaban 5 MG TABLET PO SCH ×2 (08:28→21:25)
[2019-05-29] MEDS: Spironolactone 25 MG TABLET PO SCH (08:28)
[2019-05-29] MEDS: Multivit/Ca/Min/Fe/FA 1 TAB TABLET PO SCH (08:28)
[2019-05-29] MEDS: Sacubitril/Valsartan 24/26 MG 1 TABLET PO SCH (08:28)
[2019-05-29] MEDS: Metoprolol XL (24 HR) Succ 50 MG TAB.ER.24H PO SCH (08:28)
[2019-05-30] MEDS: *HR* HYDROcodone/Acet 5/325 mg TABLET PO PRN ×2 (02:51→09:01)
[2019-05-30 06:51] LABS: BUN/Creatinine Ratio 33 (6-26); Blood Urea Nitrogen 30 mg/dL (8-23); Calcium 7.9 mg/dL (8.6-10.3); Carbon Dioxide 39 mEq/L (23-29); Chloride 96 mEq/L (98-107); Glucose 244 mg/dL (70-105); Magnesium 1.9 mg/dL (1.6-2.6); Osmolality,Calculated 314 (280-300); Potassium 4.5 mEq/L (3.5-5.1); Sodium 145 mEq/L (136-145); eGFR For African Americans > 60 (> 60); eGFR For Non-African Americans > 60 (> 60)
[2019-05-30] MEDS: Metoprolol XL (24 HR) Succ 50 MG TAB.ER.24H PO SCH (09:01)
[2019-05-30] MEDS: Spironolactone 25 MG TABLET PO SCH (09:01)
[2019-05-30] MEDS: Apixaban 5 MG TABLET PO SCH ×2 (09:01→20:11)
[2019-05-30] MEDS: Sacubitril/Valsartan 24/26 MG 1 TABLET PO SCH (09:01)
[2019-05-30] MEDS: Multivit/Ca/Min/Fe/FA 1 TAB TABLET PO SCH (09:01)
[2019-05-30] MEDS: Aspirin Enteric Coated 81 MG Tablet PO SCH (09:01)
[2019-05-30] MEDS: *HR* Amiodarone 200 MG TABLET PO SCH ×2 (09:02→20:11)
[2019-05-30] MEDS: Insulin LISPRO 300 UNITS/3 ML VIAL SQ SCH ×7 (09:03→22:34)
[2019-05-30] MEDS: Furosemide 40 MG/4 ML VIAL IVP SCH ×2 (09:05→16:53)
[2019-05-30] MEDS: Insulin DETEMIR 100 UNIT/ML X5UNITS SQ SCH ×2 (09:15→20:10)
[2019-05-31] MEDS: *HR* HYDROcodone/Acet 5/325 mg TABLET PO PRN ×3 (03:26→17:28)
[2019-05-31] MEDS: Sacubitril/Valsartan 24/26 MG 1 TABLET PO SCH (08:36)
[2019-05-31] MEDS: Insulin LISPRO 300 UNITS/3 ML VIAL SQ SCH ×7 (08:36→20:01)
[2019-05-31] MEDS: Furosemide 40 MG/4 ML VIAL IVP SCH (08:37)
[2019-05-31] MEDS: Metoprolol XL (24 HR) Succ 50 MG TAB.ER.24H PO SCH (08:37)
[2019-05-31] MEDS: Insulin DETEMIR 100 UNIT/ML X5UNITS SQ SCH ×2 (08:37→20:04)
[2019-05-31] MEDS: Spironolactone 25 MG TABLET PO SCH (08:37)
[2019-05-31] MEDS: *HR* Amiodarone 200 MG TABLET PO SCH ×2 (08:37→20:04)
[2019-05-31] MEDS: Aspirin Enteric Coated 81 MG Tablet PO SCH (08:37)
[2019-05-31] MEDS: Apixaban 5 MG TABLET PO SCH ×2 (08:37→20:04)
[2019-05-31] MEDS: Multivit/Ca/Min/Fe/FA 1 TAB TABLET PO SCH (08:38)
[2019-05-31 10:29] LABS: Basophils # 0.1 K/mcL (0.0-0.2); Basophils % 0.5 %; Eosinophils # 0.3 K/mcL (0.0-0.6); Eosinophils % 2.6 %; Hematocrit 31.3 % (37.5-50.1); Hemoglobin 9.1 g/dL (12.9-16.9); Immature Granulocytes % 0.6 % (0-4); Lymphocytes % 9.9 %; Mean Corpuscular HGB Conc 29.1 g/dL (31.6-35.5); Mean Corpuscular Volume 99.7 fL (83.0-100.0); Mean Platelet Volume 9.1 fL (9.4-12.4); Monocytes % 9.7 %; Neutrophils # 7.8 K/mcL (1.6-8.9); Platelet Count 429 K/mcL (140-400); Red Blood Count 3.14 M/mcL (4.19-5.50); Segmented Neutrophils % 76.7 %; White Blood Count 10.2 K/mcL (4.3-11.1)
[2019-05-31 10:58] LABS: BUN/Creatinine Ratio 35 (6-26); Blood Urea Nitrogen 36 mg/dL (8-23); Calcium 8.8 mg/dL (8.6-10.3); Carbon Dioxide 39 mEq/L (23-29); Chloride 92 mEq/L (98-107); Glucose 179 mg/dL (70-105); Osmolality,Calculated 307 (280-300); Potassium 4.2 mEq/L (3.5-5.1); Sodium 142 mEq/L (136-145); eGFR For African Americans > 60 (> 60); eGFR For Non-African Americans > 60 (> 60)
[2019-05-31] MEDS: Furosemide 40 MG TABLET PO SCH (17:28)
[2019-06-01] MEDS: *HR* HYDROcodone/Acet 5/325 mg TABLET PO PRN ×2 (04:10→13:46)
[2019-06-01 07:12] LABS: BUN/Creatinine Ratio 38 (6-26); Blood Urea Nitrogen 38 mg/dL (8-23); Calcium 8.5 mg/dL (8.6-10.3); Carbon Dioxide 36 mEq/L (23-29); Chloride 94 mEq/L (98-107); Glucose 38 mg/dL (70-105); Osmolality,Calculated 300 (280-300); Potassium 4.2 mEq/L (3.5-5.1); Sodium 142 mEq/L (136-145); eGFR For African Americans > 60 (> 60); eGFR For Non-African Americans > 60 (> 60)
[2019-06-01] MEDS: Metoprolol XL (24 HR) Succ 50 MG TAB.ER.24H PO SCH (08:14)
[2019-06-01] MEDS: Sacubitril/Valsartan 24/26 MG 1 TABLET PO SCH (08:14)
[2019-06-01] MEDS: Spironolactone 25 MG TABLET PO SCH (08:14)
[2019-06-01] MEDS: Furosemide 40 MG TABLET PO SCH (08:14)
[2019-06-01] MEDS: Apixaban 5 MG TABLET PO SCH ×2 (08:14→21:09)
[2019-06-01] MEDS: Multivit/Ca/Min/Fe/FA 1 TAB TABLET PO SCH (08:14)
[2019-06-01] MEDS: *HR* Amiodarone 200 MG TABLET PO SCH ×2 (08:15→21:10)
[2019-06-01] MEDS: Aspirin Enteric Coated 81 MG Tablet PO SCH (08:15)
[2019-06-01] MEDS: Insulin LISPRO 300 UNITS/3 ML VIAL SQ SCH ×7 (08:16→20:53)
[2019-06-01] MEDS: Insulin DETEMIR 100 UNIT/ML X5UNITS SQ SCH ×2 (08:17→21:10)
[2019-06-01 13:44] LABS: % Iron Saturation 13 % (20-55); Iron 35 mcg/dL (65-175); Transferrin 193 mg/dL (203-362)
[2019-06-01 14:09] LABS: Folate 20.4 ng/mL (3.0-16.0)
[2019-06-01] MEDS ORDERED: Furosemide 40 MG/4 ML VIAL IVP ONE (18:03)
[2019-06-02] MEDS: *HR* HYDROcodone/Acet 5/325 mg TABLET PO PRN ×4 (00:13→20:26)
[2019-06-02] MEDS: Spironolactone 25 MG TABLET PO SCH (08:23)
[2019-06-02] MEDS: Aspirin Enteric Coated 81 MG Tablet PO SCH (08:23)
[2019-06-02] MEDS: Sacubitril/Valsartan 24/26 MG 1 TABLET PO SCH (08:23)
[2019-06-02] MEDS: Multivit/Ca/Min/Fe/FA 1 TAB TABLET PO SCH (08:23)
[2019-06-02] MEDS: *HR* Amiodarone 200 MG TABLET PO SCH ×2 (08:24→19:40)
[2019-06-02] MEDS: Apixaban 5 MG TABLET PO SCH ×2 (08:24→19:40)
[2019-06-02] MEDS: Metoprolol XL (24 HR) Succ 50 MG TAB.ER.24H PO SCH (08:25)
[2019-06-02] MEDS: Insulin DETEMIR 100 UNIT/ML X5UNITS SQ SCH ×2 (08:28→19:49)
[2019-06-02] MEDS: Insulin LISPRO 300 UNITS/3 ML VIAL SQ SCH ×6 (08:29→19:47)
[2019-06-02 11:42] LABS: BUN/Creatinine Ratio 34 (6-26); Blood Urea Nitrogen 40 mg/dL (8-23); Calcium 8.3 mg/dL (8.6-10.3); Carbon Dioxide 38 mEq/L (23-29); Chloride 96 mEq/L (98-107); Glucose 149 mg/dL (70-105); Osmolality,Calculated 299 (280-300); Potassium 4.5 mEq/L (3.5-5.1); Sodium 138 mEq/L (136-145); eGFR For African Americans > 60 (> 60); eGFR For Non-African Americans > 60 (> 60)
[2019-06-02] MEDS: Furosemide 40 MG/4 ML VIAL IVP SCH ×2 (14:21→22:03)
[2019-06-03 05:24] LABS: Mean Platelet Volume 9.2 fL (9.4-12.4)
[2019-06-03 05:25] LABS: Hematocrit 31.3 % (37.5-50.1); Hemoglobin 9.2 g/dL (12.9-16.9); Mean Corpuscular HGB Conc 29.4 g/dL (31.6-35.5); Mean Corpuscular Hemoglobin 28.8 pg (28.0-33.3); Mean Corpuscular Volume 98.1 fL (83.0-100.0); Platelet Count 384 K/mcL (140-400); Red Blood Count 3.19 M/mcL (4.19-5.50); Red Cell Distribution Width 17.9 % (11.5-14.5); White Blood Count 11.9 K/mcL (4.3-11.1)
[2019-06-03 05:45] LABS: BUN/Creatinine Ratio 33 (6-26); Blood Urea Nitrogen 41 mg/dL (8-23); Calcium 8.5 mg/dL (8.6-10.3); Carbon Dioxide 36 mEq/L (23-29); Chloride 98 mEq/L (98-107); Glucose 110 mg/dL (70-105); Osmolality,Calculated 301 (280-300); Potassium 4.7 mEq/L (3.5-5.1); Sodium 140 mEq/L (136-145); eGFR For African Americans > 60 (> 60); eGFR For Non-African Americans 56 (> 60)
[2019-06-03] MEDS: Apixaban 5 MG TABLET PO SCH ×2 (10:37→22:07)
[2019-06-03] MEDS: Multivit/Ca/Min/Fe/FA 1 TAB TABLET PO SCH (10:37)
[2019-06-03] MEDS: Metoprolol XL (24 HR) Succ 50 MG TAB.ER.24H PO SCH (10:37)
[2019-06-03] MEDS: Sacubitril/Valsartan 24/26 MG 1 TABLET PO SCH (10:37)
[2019-06-03] MEDS: Aspirin Enteric Coated 81 MG Tablet PO SCH (10:37)
[2019-06-03] MEDS: *HR* HYDROcodone/Acet 5/325 mg TABLET PO PRN ×2 (10:38→17:43)
[2019-06-03] MEDS: *HR* Amiodarone 200 MG TABLET PO SCH ×2 (10:38→22:08)
[2019-06-03] MEDS: Insulin LISPRO 300 UNITS/3 ML VIAL SQ SCH ×7 (10:38→21:40)
[2019-06-03] MEDS: Furosemide 40 MG/4 ML VIAL IVP SCH (10:38)
[2019-06-03] MEDS: Spironolactone 25 MG TABLET PO SCH (10:38)
[2019-06-03] MEDS: Insulin DETEMIR 100 UNIT/ML X5UNITS SQ SCH ×2 (10:49→22:08)
[2019-06-03] MEDS: Iron Sucrose Complex 250 MG in 0.9 % Sodium Chloride 250 ML IVPB SCH (10:53)
[2019-06-03] MEDS: Ipratropium/Albuterol Neb 3 ML IH SCH ×3 (15:41→22:42)
[2019-06-04] MEDS: Ipratropium/Albuterol Neb 3 ML IH SCH ×4 (04:14→20:16)
[2019-06-04] MEDS ORDERED: Spironolactone 25 MG TABLET PO SCH (09:00)
[2019-06-04] MEDS: Insulin DETEMIR 100 UNIT/ML X5UNITS SQ SCH ×2 (09:00→09:38)
[2019-06-04 09:28] LABS: BUN/Creatinine Ratio 34 (6-26); Blood Urea Nitrogen 34 mg/dL (8-23); Calcium 8.9 mg/dL (8.6-10.3); Carbon Dioxide 34 mEq/L (23-29); Chloride 98 mEq/L (98-107); Glucose 64 mg/dL (70-105); Osmolality,Calculated 296 (280-300); Potassium 4.6 mEq/L (3.5-5.1); Sodium 140 mEq/L (136-145); eGFR For African Americans > 60 (> 60); eGFR For Non-African Americans > 60 (> 60)
[2019-06-04] MEDS: Metoprolol XL (24 HR) Succ 50 MG TAB.ER.24H PO SCH (09:29)
[2019-06-04] MEDS: Aspirin Enteric Coated 81 MG Tablet PO SCH (09:29)
[2019-06-04] MEDS: Sacubitril/Valsartan 24/26 MG 1 TABLET PO SCH (09:29)
[2019-06-04] MEDS: Apixaban 5 MG TABLET PO SCH ×2 (09:30→23:04)
[2019-06-04] MEDS: Multivit/Ca/Min/Fe/FA 1 TAB TABLET PO SCH (09:30)
[2019-06-04] MEDS: *HR* Amiodarone 200 MG TABLET PO SCH ×2 (09:30→23:04)
[2019-06-04] MEDS: Insulin LISPRO 300 UNITS/3 ML VIAL SQ SCH ×7 (09:32→23:05)
[2019-06-04] MEDS: Furosemide 40 MG/4 ML VIAL IVP SCH ×2 (09:44→18:28)
[2019-06-04] MEDS: Iron Sucrose Complex 250 MG in 0.9 % Sodium Chloride 250 ML IVPB SCH (09:45)
[2019-06-04 21:50] LABS: ABG Base Excess 8 mEq/L (-2 to 3); ABG HCO3 35 mEq/L (21-27); ABG Oxygen Saturation 96 % (95-98); ABG PCO2 56 mmHg (35-45); ABG PO2 87 mmHg (85-104); ABG TCO2 36 mEq/L (20-26); Blood Gas Modality BiLevel
[2019-06-04] MEDS ORDERED: *HR* LORazepam 2 MG/ML VIAL IVP ONE (22:10)
[2019-06-04] MEDS ORDERED: Nitroglycerin 0.4 MG TAB.SUBL SL PRN (23:08)
[2019-06-04] MEDS: Nitroglycerin 0.4 MG TAB.SUBL SL SCH (23:50)
[2019-06-05] MEDS: Nitroglycerin 0.4 MG TAB.SUBL SL SCH ×2 (00:56→01:18)
[2019-06-05] MEDS ORDERED: Furosemide 40 MG/4 ML VIAL IVP ONE (00:59)
[2019-06-05] MEDS: Insulin DETEMIR 100 UNIT/ML X5UNITS SQ SCH ×3 (01:23→22:03)
[2019-06-05] MEDS: Ipratropium/Albuterol Neb 3 ML IH SCH ×4 (03:53→21:50)
[2019-06-05 06:17] LABS: Basophils % 0.3 %; Eosinophils % 0.4 %; Mean Platelet Volume 9.3 fL (9.4-12.4)
[2019-06-05 06:19] LABS: Hematocrit 27.9 % (37.5-50.1); Hemoglobin 8.2 g/dL (12.9-16.9); Immature Granulocytes % 0.5 % (0-4); Lymphocytes # 0.8 K/mcL (0.6-4.6); Lymphocytes % 7.9 %; Mean Corpuscular HGB Conc 29.4 g/dL (31.6-35.5); Mean Corpuscular Hemoglobin 29.1 pg (28.0-33.3); Mean Corpuscular Volume 98.9 fL (83.0-100.0); Nucleated Red Blood Cells 0.2 /100 WBC (0); Platelet Count 342 K/mcL (140-400); Red Blood Count 2.82 M/mcL (4.19-5.50); Red Cell Distribution Width 18.4 % (11.5-14.5); Segmented Neutrophils % 80.9 %; White Blood Count 9.8 K/mcL (4.3-11.1)
[2019-06-05 06:28] LABS: Neutrophils # 7.9 K/mcL (1.6-8.9)
[2019-06-05 06:35] LABS: BUN/Creatinine Ratio 34 (6-26); Blood Urea Nitrogen 36 mg/dL (8-23); Calcium 8.6 mg/dL (8.6-10.3); Carbon Dioxide 37 mEq/L (23-29); Chloride 97 mEq/L (98-107); Glucose 153 mg/dL (70-105); Osmolality,Calculated 303 (280-300); Potassium 4.5 mEq/L (3.5-5.1); Sodium 141 mEq/L (136-145); eGFR For African Americans > 60 (> 60); eGFR For Non-African Americans > 60 (> 60)
[2019-06-05] MEDS: Furosemide 40 MG/4 ML VIAL IVP SCH (06:57)
[2019-06-05] MEDS: *HR* Amiodarone 200 MG TABLET PO SCH ×2 (06:59→22:03)
[2019-06-05] MEDS: Apixaban 5 MG TABLET PO SCH ×2 (07:00→09:36)
[2019-06-05] MEDS: Metoprolol XL (24 HR) Succ 50 MG TAB.ER.24H PO SCH (07:00)
[2019-06-05] MEDS: Aspirin Enteric Coated 81 MG Tablet PO SCH (07:00)
[2019-06-05] MEDS: Multivit/Ca/Min/Fe/FA 1 TAB TABLET PO SCH (07:00)
[2019-06-05] MEDS: Sacubitril/Valsartan 24/26 MG 1 TABLET PO SCH (07:01)
[2019-06-05 07:10] LABS: Hypochromasia Present (Not Present); Platelet Estimate Normal (Normal); Polychromasia 1+ (Not Present)
[2019-06-05] MEDS: Insulin LISPRO 300 UNITS/3 ML VIAL SQ SCH ×7 (07:51→21:58)
[2019-06-05] MEDS: Iron Sucrose Complex 250 MG in 0.9 % Sodium Chloride 250 ML IVPB SCH (08:29)
[2019-06-05] MEDS: Furosemide 240 MG in 0.9 % Sodium Chloride 96 ML IVC SCH (17:22)
[2019-06-05] MEDS: Lactobacillus 1 EACH CAP.SPRINK PO SCH (22:03)
[2019-06-06] MEDS: Ipratropium/Albuterol Neb 3 ML IH SCH ×4 (04:16→21:52)
[2019-06-06 05:47] LABS: BUN/Creatinine Ratio 30 (6-26); Blood Urea Nitrogen 29 mg/dL (8-23); Calcium 8.7 mg/dL (8.6-10.3); Carbon Dioxide 40 mEq/L (23-29); Chloride 95 mEq/L (98-107); Glucose 124 mg/dL (70-105); Osmolality,Calculated 301 (280-300); Sodium 142 mEq/L (136-145); eGFR For African Americans > 60 (> 60); eGFR For Non-African Americans > 60 (> 60)
[2019-06-06] MEDS: Insulin DETEMIR 100 UNIT/ML X5UNITS SQ SCH ×2 (08:30→20:55)
[2019-06-06] MEDS: Multivit/Ca/Min/Fe/FA 1 TAB TABLET PO SCH (08:30)
[2019-06-06] MEDS: Sacubitril/Valsartan 24/26 MG 1 TABLET PO SCH (08:30)
[2019-06-06] MEDS: Lactobacillus 1 EACH CAP.SPRINK PO SCH ×2 (08:30→20:52)
[2019-06-06] MEDS: *HR* Amiodarone 200 MG TABLET PO SCH ×2 (08:30→20:53)
[2019-06-06] MEDS: Metoprolol XL (24 HR) Succ 50 MG TAB.ER.24H PO SCH (08:30)
[2019-06-06] MEDS: Aspirin Enteric Coated 81 MG Tablet PO SCH (08:31)
[2019-06-06] MEDS: Insulin LISPRO 300 UNITS/3 ML VIAL SQ SCH ×7 (08:31→20:53)
[2019-06-06] MEDS: Furosemide 240 MG in 0.9 % Sodium Chloride 96 ML IVC SCH (15:34)
[2019-06-06] MEDS: Apixaban 5 MG TABLET PO SCH (20:52)
[2019-06-07] MEDS: Ipratropium/Albuterol Neb 3 ML IH SCH ×4 (03:20→22:12)
[2019-06-07 05:56] LABS: Hematocrit 29.8 % (37.5-50.1); Hemoglobin 8.7 g/dL (12.9-16.9); Mean Corpuscular HGB Conc 29.2 g/dL (31.6-35.5); Mean Corpuscular Volume 99.3 fL (83.0-100.0); Mean Platelet Volume 8.8 fL (9.4-12.4); Platelet Count 292 K/mcL (140-400); Red Cell Distribution Width 19.5 % (11.5-14.5); White Blood Count 8.7 K/mcL (4.3-11.1)
[2019-06-07 06:15] LABS: BUN/Creatinine Ratio 26 (6-26); Blood Urea Nitrogen 28 mg/dL (8-23); Calcium 8.4 mg/dL (8.6-10.3); Carbon Dioxide 40 mEq/L (23-29); Chloride 95 mEq/L (98-107); Glucose 144 mg/dL (70-105); Osmolality,Calculated 300 (280-300); Potassium 3.5 mEq/L (3.5-5.1); Sodium 141 mEq/L (136-145); eGFR For African Americans > 60 (> 60); eGFR For Non-African Americans > 60 (> 60)
[2019-06-07] MEDS: Insulin LISPRO 300 UNITS/3 ML VIAL SQ SCH ×7 (08:20→21:10)
[2019-06-07] MEDS: Metoprolol XL (24 HR) Succ 50 MG TAB.ER.24H PO SCH (08:23)
[2019-06-07] MEDS: Lactobacillus 1 EACH CAP.SPRINK PO SCH ×2 (08:24→21:09)
[2019-06-07] MEDS: Aspirin Enteric Coated 81 MG Tablet PO SCH (08:24)
[2019-06-07] MEDS: *HR* Amiodarone 200 MG TABLET PO SCH ×2 (08:24→21:09)
[2019-06-07] MEDS: Sacubitril/Valsartan 24/26 MG 1 TABLET PO SCH (08:25)
[2019-06-07] MEDS: Multivit/Ca/Min/Fe/FA 1 TAB TABLET PO SCH (08:26)
[2019-06-07] MEDS: Insulin DETEMIR 100 UNIT/ML X5UNITS SQ SCH ×2 (08:42→21:10)
[2019-06-07 08:56] LABS: ABG Base Excess 18 mEq/L (-2 to 3); ABG HCO3 45 mEq/L (21-27); ABG Oxygen Saturation 94 % (95-98); ABG PCO2 67 mmHg (35-45); ABG PH 7.44 pH Units (7.32-7.45); ABG PO2 74 mmHg (85-104); ABG TCO2 47 mEq/L (20-26)
[2019-06-07] MEDS ORDERED: acetaZOLAMIDE 250 MG TABLET PO ONE (10:57)
[2019-06-07 10:59] LABS: Bilirubin,Urine Negative (Negative); Blood,Urine Large (Negative); Clarity,Urine Turbid (Clear); Color,Urine Pink (Yellow); Glucose,Urine (UA) Normal (Normal); Ketones,Urine Negative (Negative); Leukocyte Esterase,Urine Trace (Negative); Nitrite,Urine Negative (Negative); Protein,Urine 100 mg/dL (Neg-Trace); Urobilinogen,Urine Normal (Normal)
[2019-06-07 11:06] LABS: WBC,Urine 50-100 per hpf (0-3)
[2019-06-07 11:07] LABS: Bacteria,Urine None Seen per hpf (None-Few); Squamous Epithelial Cell,Urine Many per lpf (None-Few)
[2019-06-07 11:16] LABS: Yeast,Urine Present per hpf (None Seen)
[2019-06-07 11:17] LABS: RBC,Urine Present per hpf (0-3)
[2019-06-07 11:30] LABS: Hematocrit 31.5 % (37.5-50.1); Hemoglobin 9.2 g/dL (12.9-16.9)
[2019-06-07 19:38] LABS: Hematocrit 29.2 % (37.5-50.1); Hemoglobin 8.3 g/dL (12.9-16.9)
[2019-06-08 04:17] LABS: Hematocrit 29.9 % (37.5-50.1)
[2019-06-08 04:19] LABS: Basophils % 0.5 %; Eosinophils # 0.3 K/mcL (0.0-0.6); Eosinophils % 3.7 %; Immature Granulocytes % 0.5 % (0-4); Lymphocytes # 1.3 K/mcL (0.6-4.6); Lymphocytes % 14.2 %; Mean Corpuscular HGB Conc 30.1 g/dL (31.6-35.5); Mean Corpuscular Hemoglobin 30.1 pg (28.0-33.3); Mean Platelet Volume 8.9 fL (9.4-12.4); Monocytes # 0.9 K/mcL (0.0-1.3); Monocytes % 9.6 %; Neutrophils # 6.4 K/mcL (1.6-8.9); Platelet Count 288 K/mcL (140-400); Red Blood Count 2.99 M/mcL (4.19-5.50); Red Cell Distribution Width 19.7 % (11.5-14.5); Segmented Neutrophils % 71.5 %; White Blood Count 8.9 K/mcL (4.3-11.1)
[2019-06-08 04:35] LABS: BUN/Creatinine Ratio 27 (6-26); Blood Urea Nitrogen 28 mg/dL (8-23); Calcium 8.5 mg/dL (8.6-10.3); Carbon Dioxide 36 mEq/L (23-29); Chloride 97 mEq/L (98-107); Glucose 207 mg/dL (70-105); Osmolality,Calculated 302 (280-300); Potassium 3.7 mEq/L (3.5-5.1); Sodium 140 mEq/L (136-145); eGFR For African Americans > 60 (> 60); eGFR For Non-African Americans > 60 (> 60)
[2019-06-08] MEDS: Ipratropium/Albuterol Neb 3 ML IH SCH ×5 (05:05→22:21)
[2019-06-08 05:39] LABS: Platelet Estimate Normal (Normal)
[2019-06-08 05:40] LABS: Hypochromasia Present (Not Present)
[2019-06-08] MEDS: Sacubitril/Valsartan 24/26 MG 1 TABLET PO SCH (09:43)
[2019-06-08] MEDS: Aspirin Enteric Coated 81 MG Tablet PO SCH (09:43)
[2019-06-08] MEDS: Lactobacillus 1 EACH CAP.SPRINK PO SCH ×2 (09:43→21:42)
[2019-06-08] MEDS: Metoprolol XL (24 HR) Succ 50 MG TAB.ER.24H PO SCH (09:44)
[2019-06-08] MEDS: *HR* Amiodarone 200 MG TABLET PO SCH ×2 (09:48→21:42)
[2019-06-08] MEDS: Insulin LISPRO 300 UNITS/3 ML VIAL SQ SCH ×7 (09:49→22:06)
[2019-06-08] MEDS: Insulin DETEMIR 100 UNIT/ML X5UNITS SQ SCH ×2 (09:50→22:02)
[2019-06-08] MEDS: Multivit/Ca/Min/Fe/FA 1 TAB TABLET PO SCH (09:51)
[2019-06-08] MEDS: Apixaban 5 MG TABLET PO SCH (19:48)
[2019-06-09] MEDS: Ipratropium/Albuterol Neb 3 ML IH SCH ×3 (03:18→15:27)
[2019-06-09] MEDS: *HR* Amiodarone 200 MG TABLET PO SCH (08:41)
[2019-06-09] MEDS: Metoprolol XL (24 HR) Succ 50 MG TAB.ER.24H PO SCH (08:41)
[2019-06-09] MEDS: Multivit/Ca/Min/Fe/FA 1 TAB TABLET PO SCH (08:41)
[2019-06-09] MEDS: Aspirin Enteric Coated 81 MG Tablet PO SCH (08:41)
[2019-06-09] MEDS: Lactobacillus 1 EACH CAP.SPRINK PO SCH (08:41)
[2019-06-09] MEDS: Sacubitril/Valsartan 24/26 MG 1 TABLET PO SCH (08:41)
[2019-06-09] MEDS: Insulin DETEMIR 100 UNIT/ML X5UNITS SQ SCH (08:45)
[2019-06-09] MEDS: Insulin LISPRO 300 UNITS/3 ML VIAL SQ SCH ×4 (08:48→12:32)
[2019-06-09 11:12] VITALS: BP 102/60
[2019-06-10] MEDS ORDERED: Furosemide 40 MG TABLET PO SCH (09:00)
== END 2019-06-09 16:55 | DRG 291 ==
LOC: EMEROOARM 03:19 → 2NNU 03:19 → SUATTDRO 05:37 → 2NNU 06:16 → 3ANU 09:53 → SUATTDRO 05-26 09:10 → ICNU 06-04 23:49 → 2NNU 06-05 11:08
PROVIDERS: ADMIT Internal Medicine; ATTEND Internal Medicine

== ENCOUNTER 2019-08-20 18:58 | Inpatient (IN) ==
[2019-08-20] MEDS ORDERED: 0.9 % Sodium Chloride 1,000 ML IVC ONE ×2 (19:08→22:13)
[2019-08-20] MEDS ORDERED: Isovue-370 500 ML BOTTLE IVP ONE (19:13)
[2019-08-20] MEDS ORDERED: Piperacillin/Tazobactam 3.375 GM in 0.9 % Sodium Chloride Mini Bag 100 ML IVPB ONE (19:22)
[2019-08-20] MEDS ORDERED: Clindamycin 600 MG/50 ML 600 MG/50 ML IV.SOLN IVPB ONE (19:25)
[2019-08-20] MEDS ORDERED: Clindamycin 900 MG/50 ML 900 MG/50 ML IV.SOLN IVPB ONE (19:28)
[2019-08-20 19:30] LABS: Basophils % 0.2 %; Eosinophils # 0.1 K/mcL (0.0-0.6); Eosinophils % 0.8 %; Hematocrit 36.7 % (37.5-50.1); Hemoglobin 10.8 g/dL (12.9-16.9); Immature Granulocytes % 0.5 % (0-4); Lymphocytes # 0.7 K/mcL (0.6-4.6); Lymphocytes % 4.1 %; Mean Corpuscular HGB Conc 29.4 g/dL (31.6-35.5); Mean Corpuscular Hemoglobin 26.3 pg (28.0-33.3); Mean Corpuscular Volume 89.3 fL (83.0-100.0); Mean Platelet Volume 9.1 fL (9.4-12.4); Monocytes # 0.8 K/mcL (0.0-1.3); Monocytes % 4.6 %; Neutrophils # 16.3 K/mcL (1.6-8.9); Platelet Count 291 K/mcL (140-400); Red Blood Count 4.11 M/mcL (4.19-5.50); Red Cell Distribution Width 15.8 % (11.5-14.5); Segmented Neutrophils % 89.8 %; White Blood Count 18.2 K/mcL (4.3-11.1)
[2019-08-20] MEDS ORDERED: Acetaminophen 650 MG RECTAL SUPP RC ONE (19:30)
[2019-08-20 19:34] LABS: INR 2.3; Prothrombin Time 26.7 Seconds (9.4-12.1)
[2019-08-20 19:37] LABS: Activated Partial Thrombo Time 31.5 Seconds (26.0-36.0)
[2019-08-20] MEDS ORDERED: Piperacillin/Tazobactam 3.375 GM in Water for inj. (sterile) 20 ML IVP ONE (19:39)
[2019-08-20 19:52] LABS: Alanine Aminotransferase 51 Units/L (7-52); Albumin 3.5 g/dL (3.5-5.7); Alkaline Phosphatase 222 Units/L (34-104); Aspartate Amino Transferase 54 Units/L (13-39); BUN/Creatinine Ratio 35 (6-26); Bilirubin,Direct 0.3 mg/dL (0.0-0.2); Bilirubin,Indirect 0.2 mg/dL (0.0-1.0); Bilirubin,Total 0.5 mg/dL (0.3-1.0); Blood Urea Nitrogen 42 mg/dL (8-23); Calcium 9.5 mg/dL (8.6-10.3); Carbon Dioxide 33 mEq/L (23-29); Chloride 96 mEq/L (98-107); Globulin 3.5 g/dL (2.4-3.5); Glucose 131 mg/dL (70-105); Magnesium 1.5 mg/dL (1.6-2.6); Osmolality,Calculated 298 (280-300); Phosphorous 1.8 mg/dL (2.7-4.5); Potassium 4.1 mEq/L (3.5-5.1); Sodium 138 mEq/L (136-145); eGFR For African Americans > 60 (> 60); eGFR For Non-African Americans 59 (> 60)
[2019-08-20 20:04] LABS: Troponin I 0.05 ng/mL (< 0.04)
[2019-08-20 20:41] LABS: ABG Base Excess 8 mEq/L (-2 to 3); ABG HCO3 32 mEq/L (21-27); ABG Oxygen Saturation 90 % (95-98); ABG PCO2 39 mmHg (35-45); ABG PH 7.52 pH Units (7.32-7.45); ABG PO2 54 mmHg (85-104); ABG TCO2 33 mEq/L (20-26)
[2019-08-20 20:57] LABS: Bilirubin,Urine Negative (Negative); Blood,Urine Negative (Negative); Clarity,Urine Clear (Clear); Color,Urine Yellow (Yellow); Glucose,Urine (UA) 500 mg/dL (Normal); Ketones,Urine Trace mg/dL (Negative); Leukocyte Esterase,Urine Negative (Negative); Nitrite,Urine Negative (Negative); PH,Urine 5.5 pH Units (5.0-8.0); Protein,Urine 30 mg/dL (Neg-Trace); Specific Gravity,Urine 1.022 (1.010-1.025); Urobilinogen,Urine Normal (Normal)
[2019-08-20 20:59] LABS: Bacteria,Urine None Seen per hpf (None-Few); Hyaline Casts,Urine None Seen per lpf (None-Few); Squamous Epithelial Cell,Urine Many per lpf (None-Few); WBC,Urine 0-3 per hpf (0-3)
[2019-08-20] MEDS ORDERED: Aspirin 325 MG TABLET PO ONE (21:32)
[2019-08-20] MEDS ORDERED: Acetaminophen 325 MG TABLET PO PRN (22:54)
[2019-08-20] MEDS ORDERED: Naloxone 0.4 MG/ML INJ IVP PRN (22:54)
[2019-08-20] MEDS ORDERED: D5% in Water 1,000 ML IVC PRN (23:49)
[2019-08-20] MEDS ORDERED: Dextrose Gel 15 GM/37.5 ML TUBE PO PRN ×2 (23:49)
[2019-08-20] MEDS ORDERED: *HR* Dextrose 50 % in Water (Syg) 50 ML SYRINGE IVP PRN (23:49)
[2019-08-21 01:31] LABS: INR 2.5
[2019-08-21 01:44] LABS: Mean Corpuscular Volume 89.1 fL (83.0-100.0); Red Cell Distribution Width 15.9 % (11.5-14.5)
[2019-08-21 01:45] LABS: Alanine Aminotransferase 100 Units/L (7-52); Alkaline Phosphatase 188 Units/L (34-104); Aspartate Amino Transferase 159 Units/L (13-39); BUN/Creatinine Ratio 36 (6-26); Bilirubin,Total 0.8 mg/dL (0.3-1.0); Blood Urea Nitrogen 46 mg/dL (8-23); Calcium 8.4 mg/dL (8.6-10.3); Carbon Dioxide 28 mEq/L (23-29); Chloride 101 mEq/L (98-107); Glucose 145 mg/dL (70-105); Hematocrit 31.9 % (37.5-50.1); Hemoglobin 9.6 g/dL (12.9-16.9); Magnesium 1.3 mg/dL (1.6-2.6); Mean Corpuscular HGB Conc 30.1 g/dL (31.6-35.5); Mean Corpuscular Hemoglobin 26.8 pg (28.0-33.3); Mean Platelet Volume 9.5 fL (9.4-12.4); Osmolality,Calculated 298 (280-300); Phosphorous 2.3 mg/dL (2.7-4.5); Platelet Count 241 K/mcL (140-400); Potassium 3.5 mEq/L (3.5-5.1); Red Blood Count 3.58 M/mcL (4.19-5.50); Sodium 137 mEq/L (136-145); White Blood Count 27.9 K/mcL (4.3-11.1); eGFR For African Americans > 60 (> 60); eGFR For Non-African Americans 55 (> 60)
[2019-08-21] MEDS ORDERED: 0.9 % Sodium Chloride 250 ML IVC ONE (01:47)
[2019-08-21 02:03] LABS: Lymphocytes # 1.1 K/mcL (0.6-4.6); Monocytes # 1.7 K/mcL (0.0-1.3); Neutrophils # 25.1 K/mcL (1.6-8.9)
[2019-08-21 02:04] LABS: Platelet Estimate Normal (Normal); Polychromasia 1+ (Not Present)
[2019-08-21] MEDS: MetroNIDAZOLE 500 MG/100 ML 500 MG/100 ML BAG IVPB SCH ×2 (02:08→07:42)
[2019-08-21] MEDS: Insulin LISPRO 300 UNITS/3 ML VIAL SQ SCH ×4 (02:11→17:19)
[2019-08-21] MEDS: Ipratropium/Albuterol Neb 3 ML IH SCH ×4 (03:10→21:53)
[2019-08-21] MEDS ORDERED: Vancomycin (wt based) 1,000 MG VIAL IVPB SCH (07:00)
[2019-08-21] MEDS ORDERED: Cefepime HCl 2,000 MG in Water for inj. (sterile) 20 ML IVP SCH (07:00)
[2019-08-21] MEDS ORDERED: Piperacillin/Tazobactam 3.375 GM in 0.9 % Sodium Chloride Mini Bag 100 ML IVPB SCH (07:00)
[2019-08-21] MEDS: *HR* Amiodarone 200 MG TABLET PO SCH ×2 (07:41→19:46)
[2019-08-21] MEDS: Aspirin 81 MG TAB.CHEW PO SCH (07:41)
[2019-08-21] MEDS: Piperacillin/Tazobactam 3.375 GM in 0.9 % Sodium Chloride Mini Bag 100 ML IVPB SCH ×3 (08:15→23:44)
[2019-08-21] MEDS ORDERED: Apixaban 5 MG TABLET PO SCH (09:00)
[2019-08-21 10:08] LABS: Enterococcus by PCR Not Detected (Not Detect); Staphylococcus aureus by PCR Not Detected (Not Detect); Staphylococcus by PCR Not Detected (Not Detect)
[2019-08-21 10:09] LABS: Acinetobacter baumannii by PCR Not Detected (Not Detect); Candida albicans by PCR Not Detected (Not Detect); Candida glabrata by PCR Not Detected (Not Detect); Candida krusei by PCR Not Detected (Not Detect); Candida parapsilosis by PCR Not Detected (Not Detect); Candida tropicalis by PCR Not Detected (Not Detect); Enterobacter cloacae Cmplx PCR Not Detected (Not Detect); Enterobacteriaceae by PCR Not Detected (Not Detect); Escherichia coli by PCR Not Detected (Not Detect); Klebsiella oxytoca by PCR Not Detected (Not Detect); Klebsiella pneumoniae by PCR Not Detected (Not Detect); Proteus by PCR Not Detected (Not Detect); Pseudomonas aeruginosa by PCR Not Detected (Not Detect); Serratia marcescens by PCR Not Detected (Not Detect); Streptococcus agalactiae(B)PCR Not Detected (Not Detect); Streptococcus pneumoniae PCR Not Detected (Not Detect); Streptococcus pyogenes (A) PCR DETECTED (Not Detect)
[2019-08-21] MEDS ORDERED: Potassium Chloride 40 MEQ, Lidocaine 1% 2 ML in 0.9 % Sodium Chloride 500 ML IVPB ONE (10:25)
[2019-08-21 10:28] LABS: Hepatitis B Surface Antigen Nonreactive (Nonreactive)
[2019-08-21 10:57] LABS: Hepatitis B Core IgM Nonreactive (Nonreactive)
[2019-08-21 10:58] LABS: Hepatitis A Antibody IgM Nonreactive (Nonreactive); Hepatitis C Virus Antibody Nonreactive (Nonreactive)
[2019-08-21 11:08] LABS: Estimated Average Glucose 189 mg/dl
[2019-08-21] MEDS ORDERED: Isovue-370 500 ML BOTTLE IVP ONE ×2 (12:12→12:23)
[2019-08-21 12:21] LABS: INR 2.6; Prothrombin Time 29.7 Seconds (9.4-12.1)
[2019-08-21 12:24] LABS: Activated Partial Thrombo Time 34.2 Seconds (26.0-36.0)
[2019-08-21] MEDS ORDERED: *HR* Heparin 5,000 UNIT/ML VIAL SQ SCH (14:00)
[2019-08-21] MEDS ORDERED: Furosemide 40 MG/4 ML VIAL IVP ONE (14:34)
[2019-08-21] MEDS ORDERED: Perflutren Lipid Microsphere 1.3 ML in 0.9 % Sodium Chloride 8.7 ML IVP ONE (15:33)
[2019-08-21] MEDS: Clindamycin 900 MG/50 ML 900 MG/50 ML IV.SOLN IVPB SCH ×2 (16:56→23:43)
[2019-08-21] MEDS ORDERED: Heparin 25,000 UNIT/250 ML D5W 25,000 UNIT/250 ML IV.SOLN IVC SCH ×2 (17:45)
[2019-08-21] MEDS ORDERED: Clindamycin 900 MG/50 ML 900 MG/50 ML IV.SOLN IVPB SCH (18:00)
[2019-08-21] MEDS ORDERED: Insulin LISPRO 300 UNITS/3 ML VIAL SQ SCH (21:00)
[2019-08-22] MEDS: Ipratropium/Albuterol Neb 3 ML IH SCH ×5 (03:09→22:47)
[2019-08-22 04:52] LABS: Basophils % 0.2 %; Eosinophils # 0.1 K/mcL (0.0-0.6); Eosinophils % 0.6 %; Hematocrit 33.2 % (37.5-50.1); Hemoglobin 9.8 g/dL (12.9-16.9); Immature Granulocytes % 0.9 % (0-4); Immature Reticulocyte % 22.2 % (11.0-38.0); Lymphocytes % 5.3 %; Mean Corpuscular HGB Conc 29.5 g/dL (31.6-35.5); Mean Corpuscular Hemoglobin 25.9 pg (28.0-33.3); Mean Corpuscular Volume 87.6 fL (83.0-100.0); Mean Platelet Volume 9.5 fL (9.4-12.4); Monocytes % 5.3 %; Neutrophils # 16.2 K/mcL (1.6-8.9); Platelet Count 249 K/mcL (140-400); Red Blood Count 3.79 M/mcL (4.19-5.50); Red Cell Distribution Width 16.2 % (11.5-14.5); Retculocyte # 0.04 M/mcL (0.05-0.10); Reticulocyte % 1.1 % (1.6-2.8); Segmented Neutrophils % 87.7 %; White Blood Count 18.4 K/mcL (4.3-11.1)
[2019-08-22 05:07] LABS: INR 2.5; Prothrombin Time 28.9 Seconds (9.4-12.1)
[2019-08-22 05:10] LABS: Activated Partial Thrombo Time 33.8 Seconds (26.0-36.0)
[2019-08-22 05:12] LABS: Albumin 2.8 g/dL (3.5-5.7); Bilirubin,Total 0.6 mg/dL (0.3-1.0); Calcium 7.8 mg/dL (8.6-10.3); Globulin 2.9 g/dL (2.4-3.5); Potassium 3.8 mEq/L (3.5-5.1); Total Protein 5.7 g/dL (6.4-8.9)
[2019-08-22 05:39] LABS: Folate 12.1 ng/mL (3.0-16.0)
[2019-08-22 06:09] LABS: Ferritin 131 ng/mL (20-250); Iron < 10 mcg/dL (65-175); Transferrin 185 mg/dL (203-362)
[2019-08-22] MEDS ORDERED: Insulin LISPRO 300 UNITS/3 ML VIAL SQ SCH ×5 (07:30→21:00)
[2019-08-22] MEDS ORDERED: Aminoglycoside Consult 1 EACH MC ONE (07:35)
[2019-08-22] MEDS ORDERED: Furosemide 20 MG/2 ML VIAL IVP ONE (08:28)
[2019-08-22] MEDS: Clindamycin 900 MG/50 ML 900 MG/50 ML IV.SOLN IVPB SCH (08:35)
[2019-08-22] MEDS: Piperacillin/Tazobactam 3.375 GM in 0.9 % Sodium Chloride Mini Bag 100 ML IVPB SCH (08:36)
[2019-08-22] MEDS: Aspirin 81 MG TAB.CHEW PO SCH (08:42)
[2019-08-22] MEDS: *HR* Amiodarone 200 MG TABLET PO SCH ×2 (08:42→22:32)
[2019-08-22] MEDS ORDERED: Metoprolol XL (24 HR) Succ 50 MG TAB.ER.24H PO SCH (09:30)
[2019-08-22] MEDS ORDERED: Metoprolol XL (24 HR) Succ 25 MG TAB.ER.24H PO SCH ×2 (09:30→09:48)
[2019-08-22] MEDS ORDERED: D5% in Water 1,000 ML IVC PRN ×2 (09:48→19:28)
[2019-08-22] MEDS ORDERED: Insulin DETEMIR 100 UNIT/ML X5UNITS SQ SCH (09:48)
[2019-08-22] MEDS ORDERED: Dextrose Gel 15 GM/37.5 ML TUBE PO PRN ×4 (09:48→19:28)
[2019-08-22] MEDS ORDERED: *HR* OxyCODONE Immed Rel 5 MG TABLET PO PRN ×2 (09:48→19:28)
[2019-08-22] MEDS ORDERED: *HR* Dextrose 50 % in Water (Syg) 50 ML SYRINGE IVP PRN ×2 (09:48→19:28)
[2019-08-22] MEDS ORDERED: Acetaminophen 325 MG TABLET PO PRN ×2 (09:48→19:28)
[2019-08-22] MEDS ORDERED: Naloxone 0.4 MG/ML INJ IVP PRN ×2 (09:48→19:28)
[2019-08-22] MEDS: Insulin LISPRO 300 UNITS/3 ML VIAL SQ SCH ×2 (12:08→16:01)
[2019-08-22] MEDS: Lactobacillus 1 EACH CAP.SPRINK PO SCH ×2 (13:05→14:07)
[2019-08-22] MEDS ORDERED: Piperacillin/Tazobactam 3.375 GM in 0.9 % Sodium Chloride Mini Bag 100 ML IVPB SCH (16:00)
[2019-08-22] MEDS ORDERED: Clindamycin 900 MG/50 ML 900 MG/50 ML IV.SOLN IVPB SCH (16:00)
[2019-08-22] MEDS ORDERED: *HR* FentaNYL (PF) 100 MCG/2 ML VIAL ONE (16:13)
[2019-08-22] MEDS ORDERED: Ondansetron 4 MG/2 ML VIAL ONE (16:13)
[2019-08-22] MEDS ORDERED: *HR* PHENYLEPHRINE 1,000 MCG/10 ML SYRINGE IVP ONE (17:48)
[2019-08-22] MEDS ORDERED: *HR* Amiodarone 200 MG TABLET PO SCH (21:00)
[2019-08-22] MEDS: Insulin DETEMIR 100 UNIT/ML X5UNITS SQ SCH (22:32)
[2019-08-23] MEDS: Piperacillin/Tazobactam 3.375 GM in 0.9 % Sodium Chloride Mini Bag 100 ML IVPB SCH ×2 (00:22→08:39)
[2019-08-23] MEDS: Clindamycin 900 MG/50 ML 900 MG/50 ML IV.SOLN IVPB SCH ×4 (00:23→23:33)
[2019-08-23] MEDS: Ipratropium/Albuterol Neb 3 ML IH SCH ×4 (03:45→21:33)
[2019-08-23] MEDS ORDERED: Albumin 25% 25gram/100mL 25 GM/100 ML IV.SOLN IVPB ONE (04:08)
[2019-08-23] MEDS ORDERED: Albumin 25% 25gram/100mL 25 GM/100 ML IV.SOLN IVPB SCH (04:30)
[2019-08-23] MEDS: *HR* Heparin 5,000 UNIT/ML VIAL SQ SCH ×2 (04:31→17:30)
[2019-08-23] MEDS: Albumin 25% 25gram/100mL 25 GM/100 ML IV.SOLN IVPB SCH ×2 (04:31→06:07)
[2019-08-23 05:05] LABS: Basophils % 0.3 %; Eosinophils # 0.2 K/mcL (0.0-0.6); Hematocrit 30.7 % (37.5-50.1); Hemoglobin 9.1 g/dL (12.9-16.9); Immature Granulocytes % 0.9 % (0-4); Lymphocytes % 8.6 %; Mean Corpuscular HGB Conc 29.6 g/dL (31.6-35.5); Mean Corpuscular Volume 87.7 fL (83.0-100.0); Mean Platelet Volume 9.7 fL (9.4-12.4); Monocytes # 0.8 K/mcL (0.0-1.3); Monocytes % 7.1 %; Neutrophils # 9.3 K/mcL (1.6-8.9); Platelet Count 243 K/mcL (140-400); Red Cell Distribution Width 16.3 % (11.5-14.5); Segmented Neutrophils % 81.1 %; White Blood Count 11.5 K/mcL (4.3-11.1)
[2019-08-23 05:22] LABS: Albumin 2.6 g/dL (3.5-5.7); Albumin/Globulin Ratio 0.9 (1.1-2.2); Bilirubin,Total 0.6 mg/dL (0.3-1.0); Calcium 7.6 mg/dL (8.6-10.3); Globulin 2.9 g/dL (2.4-3.5); Magnesium 1.8 mg/dL (1.6-2.6); Phosphorous 4.7 mg/dL (2.7-4.5); Potassium 3.4 mEq/L (3.5-5.1); Total Protein 5.5 g/dL (6.4-8.9)
[2019-08-23 05:23] LABS: Albumin 2.6 g/dL (3.5-5.7); Albumin/Globulin Ratio 0.9 (1.1-2.2); Bilirubin,Direct 0.3 mg/dL (0.0-0.2); Bilirubin,Indirect 0.3 mg/dL (0.0-1.0); Bilirubin,Total 0.6 mg/dL (0.3-1.0); Globulin 2.9 g/dL (2.4-3.5); Total Protein 5.5 g/dL (6.4-8.9)
[2019-08-23] MEDS ORDERED: *HR* Heparin 5,000 UNIT/ML VIAL SQ SCH (06:00)
[2019-08-23] MEDS ORDERED: Ringers Solution, Lactated 250 ML IVC ONE (08:27)
[2019-08-23] MEDS ORDERED: Ringers Solution, Lactated 500 ML ONE (08:32)
[2019-08-23] MEDS: Lactobacillus 1 EACH CAP.SPRINK PO SCH (08:38)
[2019-08-23] MEDS: Aspirin 81 MG TAB.CHEW PO SCH (08:39)
[2019-08-23] MEDS: Insulin LISPRO 300 UNITS/3 ML VIAL SQ SCH ×3 (08:39→17:35)
[2019-08-23] MEDS: *HR* Amiodarone 200 MG TABLET PO SCH ×2 (08:50→23:33)
[2019-08-23] MEDS: Metoprolol XL (24 HR) Succ 25 MG TAB.ER.24H PO SCH (08:50)
[2019-08-23] MEDS: Insulin DETEMIR 100 UNIT/ML X5UNITS SQ SCH (08:51)
[2019-08-23] MEDS ORDERED: Metoprolol XL (24 HR) Succ 50 MG TAB.ER.24H PO SCH (09:00)
[2019-08-23] MEDS ORDERED: Metoprolol XL (24 HR) Succ 25 MG TAB.ER.24H PO SCH (09:00)
[2019-08-23] MEDS ORDERED: Aspirin 81 MG TAB.CHEW PO SCH (09:00)
[2019-08-23] MEDS ORDERED: Acetaminophen IV 1,000 MG/100 ML INFUS..BTL IVPB PRN ×2 (11:27→17:16)
[2019-08-23] MEDS ORDERED: D5% in Water 1,000 ML IVC PRN (16:00)
[2019-08-23] MEDS ORDERED: Dextrose Gel 15 GM/37.5 ML TUBE PO PRN ×2 (16:00)
[2019-08-23] MEDS ORDERED: *HR* Dextrose 50 % in Water (Syg) 50 ML SYRINGE IVP PRN (16:00)
[2019-08-23] MEDS ORDERED: Ringers Solution, Lactated 1,000 ML IVC SCH (16:15)
[2019-08-23] MEDS: Ringers Solution, Lactated 1,000 ML IVC SCH (17:29)
[2019-08-23] MEDS: Ampicillin/Sulbactam 3,000 MG in 0.9 % Sodium Chloride Mini Bag 100 ML IVPB SCH ×2 (18:03→23:34)
[2019-08-24] MEDS: Ipratropium/Albuterol Neb 3 ML IH SCH ×4 (03:46→21:52)
[2019-08-24 05:17] LABS: Basophils # 0.1 K/mcL (0.0-0.2); Basophils % 0.5 %; Eosinophils # 0.2 K/mcL (0.0-0.6); Eosinophils % 1.6 %; Hematocrit 31.7 % (37.5-50.1); Hemoglobin 9.5 g/dL (12.9-16.9); Immature Granulocytes % 1.8 % (0-4); Lymphocytes # 1.5 K/mcL (0.6-4.6); Lymphocytes % 13.3 %; Mean Corpuscular Hemoglobin 26.4 pg (28.0-33.3); Mean Corpuscular Volume 88.1 fL (83.0-100.0); Mean Platelet Volume 10.2 fL (9.4-12.4); Monocytes # 0.9 K/mcL (0.0-1.3); Monocytes % 8.6 %; Neutrophils # 8.2 K/mcL (1.6-8.9); Nucleated Red Blood Cells 0.2 /100 WBC (0); Platelet Count 265 K/mcL (140-400); Red Cell Distribution Width 16.5 % (11.5-14.5); Segmented Neutrophils % 74.2 %
[2019-08-24 05:31] LABS: Magnesium 1.9 mg/dL (1.6-2.6); Potassium 3.5 mEq/L (3.5-5.1)
[2019-08-24] MEDS: Ampicillin/Sulbactam 3,000 MG in 0.9 % Sodium Chloride Mini Bag 100 ML IVPB SCH ×2 (05:35→17:27)
[2019-08-24] MEDS: *HR* Heparin 5,000 UNIT/ML VIAL SQ SCH ×2 (05:35→17:26)
[2019-08-24] MEDS: Aspirin 81 MG TAB.CHEW PO SCH (08:34)
[2019-08-24] MEDS: Insulin LISPRO 300 UNITS/3 ML VIAL SQ SCH ×3 (08:34→17:28)
[2019-08-24] MEDS: Lactobacillus 1 EACH CAP.SPRINK PO SCH (08:35)
[2019-08-24] MEDS: *HR* Amiodarone 200 MG TABLET PO SCH ×2 (08:35→21:32)
[2019-08-24] MEDS: Clindamycin 900 MG/50 ML 900 MG/50 ML IV.SOLN IVPB SCH (08:35)
[2019-08-24] MEDS ORDERED: Insulin DETEMIR 100 UNIT/ML X5UNITS SQ SCH (09:00)
[2019-08-24] MEDS: Ringers Solution, Lactated 1,000 ML IVC SCH (13:04)
[2019-08-24] MEDS ORDERED: Insulin DETEMIR 100 UNIT/ML X5UNITS SQ ONE (15:29)
[2019-08-25] MEDS: Ipratropium/Albuterol Neb 3 ML IH SCH ×4 (03:29→22:40)
[2019-08-25] MEDS: *HR* Heparin 5,000 UNIT/ML VIAL SQ SCH ×2 (06:10→16:58)
[2019-08-25] MEDS: Ampicillin/Sulbactam 3,000 MG in 0.9 % Sodium Chloride Mini Bag 100 ML IVPB SCH (06:10)
[2019-08-25] MEDS: Ringers Solution, Lactated 1,000 ML IVC SCH ×2 (06:17→15:51)
[2019-08-25 07:40] LABS: Basophils # 0.1 K/mcL (0.0-0.2); Basophils % 0.5 %; Eosinophils # 0.4 K/mcL (0.0-0.6); Eosinophils % 3.2 %; Hematocrit 31.3 % (37.5-50.1); Hemoglobin 9.4 g/dL (12.9-16.9); Immature Granulocytes % 2.3 % (0-4); Lymphocytes % 9.3 %; Mean Corpuscular Hemoglobin 25.9 pg (28.0-33.3); Mean Corpuscular Volume 86.2 fL (83.0-100.0); Mean Platelet Volume 9.9 fL (9.4-12.4); Monocytes # 0.8 K/mcL (0.0-1.3); Monocytes % 7.4 %; Neutrophils # 8.6 K/mcL (1.6-8.9); Nucleated Red Blood Cells 0.2 /100 WBC (0); Platelet Count 288 K/mcL (140-400); Red Blood Count 3.63 M/mcL (4.19-5.50); Red Cell Distribution Width 16.6 % (11.5-14.5); Segmented Neutrophils % 77.3 %; White Blood Count 11.1 K/mcL (4.3-11.1)
[2019-08-25 07:47] LABS: Albumin 3.2 g/dL (3.5-5.7); Albumin/Globulin Ratio 1.1 (1.1-2.2); Bilirubin,Direct 0.3 mg/dL (0.0-0.2); Bilirubin,Indirect 0.3 mg/dL (0.0-1.0); Bilirubin,Total 0.6 mg/dL (0.3-1.0); Globulin 2.9 g/dL (2.4-3.5); Total Protein 6.1 g/dL (6.4-8.9)
[2019-08-25 07:49] LABS: Calcium 8.1 mg/dL (8.6-10.3); Magnesium 1.8 mg/dL (1.6-2.6); Potassium 3.5 mEq/L (3.5-5.1)
[2019-08-25 08:04] LABS: Alpha 2 Globulin (PEP) 0.94 g/dL (0.48-1.05); Beta Globulin (PEP) 0.71 g/dL (0.48-1.10)
[2019-08-25] MEDS: Lactobacillus 1 EACH CAP.SPRINK PO SCH (08:56)
[2019-08-25] MEDS: Insulin LISPRO 300 UNITS/3 ML VIAL SQ SCH ×3 (08:56→16:58)
[2019-08-25] MEDS: Aspirin 81 MG TAB.CHEW PO SCH (08:56)
[2019-08-25] MEDS: *HR* Amiodarone 200 MG TABLET PO SCH ×2 (08:56→23:25)
[2019-08-25] MEDS: Insulin DETEMIR 100 UNIT/ML X5UNITS SQ SCH (08:57)
[2019-08-25] MEDS: Metoprolol XL (24 HR) Succ 25 MG TAB.ER.24H PO SCH (09:12)
[2019-08-25] MEDS ORDERED: Ertapenem 1,000 MG in 0.9 % Sodium Chloride Mini Bag 100 ML IVPB ONE (10:00)
[2019-08-25] MEDS ORDERED: DAPTOmycin 500 MG in 0.9 % Sodium Chloride 100 ML IVPB SCH (11:00)
[2019-08-25 15:03] LABS: Immunoglobulin A 377 mg/dL (68-408); Immunoglobulin G 1030 mg/dL (768-1632); Immunoglobulin M 103 mg/dL (35-263)
[2019-08-25 15:16] LABS: IFE Reflexed IFE Done; Immunoglobulin A 425 mg/dL (68-408); Immunoglobulin G 1150 mg/dL (768-1632); Immunoglobulin M 105 mg/dL (35-263)
[2019-08-26] MEDS: Ringers Solution, Lactated 1,000 ML IVC SCH ×2 (00:02→16:03)
[2019-08-26] MEDS: Ipratropium/Albuterol Neb 3 ML IH SCH ×4 (03:27→21:53)
[2019-08-26] MEDS: *HR* Heparin 5,000 UNIT/ML VIAL SQ SCH ×2 (05:23→17:38)
[2019-08-26 07:12] LABS: Basophils % 0.4 %; Eosinophils # 0.3 K/mcL (0.0-0.6); Eosinophils % 2.9 %; Hematocrit 32.5 % (37.5-50.1); Immature Granulocytes % 1.7 % (0-4); Lymphocytes # 1.1 K/mcL (0.6-4.6); Lymphocytes % 10.2 %; Mean Corpuscular HGB Conc 30.8 g/dL (31.6-35.5); Mean Corpuscular Hemoglobin 26.6 pg (28.0-33.3); Mean Corpuscular Volume 86.4 fL (83.0-100.0); Mean Platelet Volume 9.5 fL (9.4-12.4); Monocytes # 0.9 K/mcL (0.0-1.3); Monocytes % 8.5 %; Neutrophils # 8.4 K/mcL (1.6-8.9); Nucleated Red Blood Cells 0.2 /100 WBC (0); Platelet Count 295 K/mcL (140-400); Red Blood Count 3.76 M/mcL (4.19-5.50); Red Cell Distribution Width 16.9 % (11.5-14.5); Segmented Neutrophils % 76.3 %
[2019-08-26] MEDS ORDERED: *HR* Amiodarone 200 MG TABLET ONE (08:37)
[2019-08-26] MEDS ORDERED: Lactobacillus 1 EACH CAP.SPRINK ONE (08:37)
[2019-08-26] MEDS ORDERED: Metoprolol XL (24 HR) Succ 25 MG TAB.ER.24H PO ONE (08:37)
[2019-08-26] MEDS ORDERED: Ipratropium/Albuterol Neb 3 ML ONE ×2 (08:37→15:21)
[2019-08-26 14:15] LABS: Calcium 8.4 mg/dL (8.6-10.3); Potassium 3.4 mEq/L (3.5-5.1)
[2019-08-26] MEDS ORDERED: Ringers Solution, Lactated 1,000 ML IV.SOLN ONE (15:21)
[2019-08-26] MEDS: Insulin LISPRO 300 UNITS/3 ML VIAL SQ SCH ×3 (16:00→16:51)
[2019-08-26] MEDS: Aspirin 81 MG TAB.CHEW PO SCH (16:01)
[2019-08-26] MEDS: *HR* Amiodarone 200 MG TABLET PO SCH ×2 (16:01→22:08)
[2019-08-26] MEDS: Lactobacillus 1 EACH CAP.SPRINK PO SCH (16:01)
[2019-08-26] MEDS: Insulin DETEMIR 100 UNIT/ML X5UNITS SQ SCH (16:02)
[2019-08-26] MEDS: Metoprolol XL (24 HR) Succ 25 MG TAB.ER.24H PO SCH (16:02)
[2019-08-27] MEDS: Ipratropium/Albuterol Neb 3 ML IH SCH ×4 (03:29→22:08)
[2019-08-27] MEDS: *HR* Heparin 5,000 UNIT/ML VIAL SQ SCH ×2 (04:06→18:49)
[2019-08-27 06:04] LABS: Basophils % 0.3 %; Eosinophils # 0.3 K/mcL (0.0-0.6); Eosinophils % 1.9 %; Hematocrit 34.5 % (37.5-50.1); Hemoglobin 10.2 g/dL (12.9-16.9); Immature Granulocytes % 1.4 % (0-4); Lymphocytes # 1.2 K/mcL (0.6-4.6); Lymphocytes % 8.9 %; Mean Corpuscular HGB Conc 29.6 g/dL (31.6-35.5); Mean Corpuscular Volume 87.8 fL (83.0-100.0); Mean Platelet Volume 9.3 fL (9.4-12.4); Monocytes # 1.1 K/mcL (0.0-1.3); Monocytes % 8.5 %; Neutrophils # 10.3 K/mcL (1.6-8.9); Platelet Count 311 K/mcL (140-400); Red Blood Count 3.93 M/mcL (4.19-5.50); Red Cell Distribution Width 17.3 % (11.5-14.5)
[2019-08-27 06:25] LABS: Calcium 8.6 mg/dL (8.6-10.3); Potassium 3.7 mEq/L (3.5-5.1)
[2019-08-27] MEDS: *HR* Amiodarone 200 MG TABLET PO SCH ×2 (08:33→21:39)
[2019-08-27] MEDS: Aspirin 81 MG TAB.CHEW PO SCH (08:33)
[2019-08-27] MEDS: Lactobacillus 1 EACH CAP.SPRINK PO SCH ×2 (08:33→21:40)
[2019-08-27] MEDS: Metoprolol XL (24 HR) Succ 25 MG TAB.ER.24H PO SCH (08:33)
[2019-08-27] MEDS: Insulin LISPRO 300 UNITS/3 ML VIAL SQ SCH ×3 (08:33→19:01)
[2019-08-27] MEDS: Insulin DETEMIR 100 UNIT/ML X5UNITS SQ SCH (08:34)
[2019-08-27] MEDS ORDERED: Furosemide 40 MG in 0.9 % Sodium Chloride 50 ML IVPB ONE (10:55)
[2019-08-27] MEDS ORDERED: Furosemide 40 MG/4 ML VIAL ONE (10:56)
[2019-08-27 11:29] LABS: ABG Base Excess -5 mEq/L (-2 to 3); ABG HCO3 26 mEq/L (21-27); ABG Oxygen Saturation 91 % (95-98); ABG PCO2 71 mmHg (35-45); ABG PH 7.17 pH Units (7.32-7.45); ABG PO2 79 mmHg (85-104); ABG TCO2 28 mEq/L (20-26); Blood Gas Pressure Support 14 cm H2O
[2019-08-27 11:38] LABS: Basophils # 0.1 K/mcL (0.0-0.2); Basophils % 0.4 %; Eosinophils # 0.3 K/mcL (0.0-0.6); Eosinophils % 1.4 %; Immature Granulocytes % 1.5 % (0-4); Lymphocytes % 15.9 %; Mean Corpuscular Hemoglobin 26.2 pg (28.0-33.3); Mean Corpuscular Volume 90.1 fL (83.0-100.0); Mean Platelet Volume 9.4 fL (9.4-12.4); Monocytes % 5.3 %; Neutrophils # 14.1 K/mcL (1.6-8.9); Nucleated Red Blood Cells 0.2 /100 WBC (0); Platelet Count 458 K/mcL (140-400); Red Blood Count 4.55 M/mcL (4.19-5.50); Red Cell Distribution Width 18.3 % (11.5-14.5); Segmented Neutrophils % 75.5 %; White Blood Count 18.6 K/mcL (4.3-11.1)
[2019-08-27 11:50] LABS: Hemoglobin 11.9 g/dL (12.9-16.9)
[2019-08-27] MEDS: levoFLOXacin 750 MG/150 ML 750 MG/150 ML BAG IVPB SCH (12:01)
[2019-08-27 12:04] LABS: Calcium 8.9 mg/dL (8.6-10.3); Potassium 4.7 mEq/L (3.5-5.1); Troponin I 0.03 ng/mL (< 0.04)
[2019-08-27 14:58] LABS: ABG Base Excess 1 mEq/L (-2 to 3); ABG HCO3 27 mEq/L (21-27); ABG Oxygen Saturation 99 % (95-98); ABG PCO2 47 mmHg (35-45); ABG PH 7.37 pH Units (7.32-7.45); ABG PO2 148 mmHg (85-104); ABG TCO2 29 mEq/L (20-26); Blood Gas Pressure Support 14 cm H2O
[2019-08-27] MEDS: Meropenem 1,000 MG in 0.9 % Sodium Chloride Mini Bag 100 ML IVPB SCH (18:43)
[2019-08-28] MEDS: Ipratropium/Albuterol Neb 3 ML IH SCH ×4 (03:52→21:50)
[2019-08-28 04:36] LABS: Basophils % 0.4 %; Eosinophils # 0.1 K/mcL (0.0-0.6); Eosinophils % 1.2 %; Hematocrit 33.9 % (37.5-50.1); Immature Granulocytes % 1.3 % (0-4); Lymphocytes # 1.1 K/mcL (0.6-4.6); Mean Corpuscular HGB Conc 29.8 g/dL (31.6-35.5); Mean Corpuscular Hemoglobin 26.2 pg (28.0-33.3); Mean Corpuscular Volume 88.1 fL (83.0-100.0); Mean Platelet Volume 9.1 fL (9.4-12.4); Monocytes # 1.1 K/mcL (0.0-1.3); Neutrophils # 8.8 K/mcL (1.6-8.9); Platelet Count 294 K/mcL (140-400); Red Blood Count 3.85 M/mcL (4.19-5.50); Red Cell Distribution Width 18.2 % (11.5-14.5); Segmented Neutrophils % 77.1 %; White Blood Count 11.4 K/mcL (4.3-11.1)
[2019-08-28 04:37] LABS: Hemoglobin 10.1 g/dL (12.9-16.9)
[2019-08-28 04:56] LABS: Calcium 8.7 mg/dL (8.6-10.3); Potassium 3.9 mEq/L (3.5-5.1)
[2019-08-28] MEDS: Meropenem 1,000 MG in 0.9 % Sodium Chloride Mini Bag 100 ML IVPB SCH ×2 (06:37→17:20)
[2019-08-28] MEDS: *HR* Heparin 5,000 UNIT/ML VIAL SQ SCH ×2 (06:38→17:20)
[2019-08-28] MEDS ORDERED: Furosemide 40 MG/4 ML VIAL IVP ONE (07:19)
[2019-08-28] MEDS: Insulin LISPRO 300 UNITS/3 ML VIAL SQ SCH ×3 (07:23→16:03)
[2019-08-28] MEDS: Lactobacillus 1 EACH CAP.SPRINK PO SCH ×2 (07:50→19:44)
[2019-08-28] MEDS: *HR* Amiodarone 200 MG TABLET PO SCH ×2 (07:50→19:44)
[2019-08-28] MEDS: Metoprolol XL (24 HR) Succ 25 MG TAB.ER.24H PO SCH (07:50)
[2019-08-28] MEDS: Aspirin 81 MG TAB.CHEW PO SCH (07:50)
[2019-08-28] MEDS: Insulin DETEMIR 100 UNIT/ML X5UNITS SQ SCH (07:50)
[2019-08-28 13:21] LABS: Adenovirus Not Detected (Not Detect); Bordetella Pertussis Not Detected (Not Detect); Chlamydophila pneumoniae Not Detected (Not Detect); Coronavirus 229E Not Detected (Not Detect); Coronavirus HKU1 Not Detected (Not Detect); Coronavirus NL63 Not Detected (Not Detect); Coronavirus OC43 Not Detected (Not Detect); Human Metapneumovirus Not Detected (Not Detect); Human Rhinovirus/Enterovirus Not Detected (Not Detect); Influenza A Subtype 2009 H1 Not Detected (Not Detect); Influenza B Not Detected (Not Detect); Mycoplasma pneumoniae Not Detected (Not Detect); Parainfluenza Virus 1 Not Detected (Not Detect); Parainfluenza Virus 2 Not Detected (Not Detect); Parainfluenza Virus 3 Not Detected (Not Detect); Parainfluenza Virus 4 Not Detected (Not Detect); Respiratory Syncytial Virus Not Detected (Not Detect)
[2019-08-29] MEDS: Ipratropium/Albuterol Neb 3 ML IH SCH ×2 (04:20→10:09)
[2019-08-29 04:37] LABS: Basophils % 0.3 %; Eosinophils # 0.2 K/mcL (0.0-0.6); Hematocrit 34.7 % (37.5-50.1); Hemoglobin 10.4 g/dL (12.9-16.9); Lymphocytes # 1.1 K/mcL (0.6-4.6); Mean Corpuscular Hemoglobin 26.6 pg (28.0-33.3); Mean Corpuscular Volume 88.7 fL (83.0-100.0); Mean Platelet Volume 9.1 fL (9.4-12.4); Monocytes # 1.1 K/mcL (0.0-1.3); Monocytes % 10.8 %; Neutrophils # 7.7 K/mcL (1.6-8.9); Platelet Count 290 K/mcL (140-400); Red Blood Count 3.91 M/mcL (4.19-5.50); Red Cell Distribution Width 18.9 % (11.5-14.5); Segmented Neutrophils % 74.9 %; White Blood Count 10.2 K/mcL (4.3-11.1)
[2019-08-29 04:56] LABS: BUN/Creatinine Ratio 32 (6-26); Blood Urea Nitrogen 43 mg/dL (8-23); Calcium 8.7 mg/dL (8.6-10.3); Carbon Dioxide 27 mEq/L (23-29); Chloride 104 mEq/L (98-107); Glucose 56 mg/dL (70-105); Magnesium 1.8 mg/dL (1.6-2.6); Osmolality,Calculated 294 (280-300); Potassium 3.7 mEq/L (3.5-5.1); Sodium 138 mEq/L (136-145); eGFR For African Americans > 60 (> 60); eGFR For Non-African Americans 53 (> 60)
[2019-08-29] MEDS: *HR* Heparin 5,000 UNIT/ML VIAL SQ SCH (05:38)
[2019-08-29] MEDS: Meropenem 1,000 MG in 0.9 % Sodium Chloride Mini Bag 100 ML IVPB SCH (05:38)
[2019-08-29] MEDS: Insulin LISPRO 300 UNITS/3 ML VIAL SQ SCH ×2 (07:42→11:50)
[2019-08-29] MEDS: Insulin DETEMIR 100 UNIT/ML X5UNITS SQ SCH (07:49)
[2019-08-29] MEDS: *HR* Amiodarone 200 MG TABLET PO SCH (07:50)
[2019-08-29] MEDS: Aspirin 81 MG TAB.CHEW PO SCH (07:50)
[2019-08-29] MEDS: Metoprolol XL (24 HR) Succ 25 MG TAB.ER.24H PO SCH (07:50)
[2019-08-29] MEDS: Lactobacillus 1 EACH CAP.SPRINK PO SCH (07:51)
[2019-08-29 11:49] VITALS: BP 125/77
[2019-08-29] MEDS: levoFLOXacin 750 MG/150 ML 750 MG/150 ML BAG IVPB SCH (11:55)
== END 2019-08-29 15:55 | DRG 853 ==
LOC: 2NENU 18:58 → EMEROOARM 18:58 → 2NENU 23:57 → ICNU 08-21 06:16 → SUATTDRO 08-21 14:42 → 2ANU 08-22 18:20
PROVIDERS: ADMIT Internal Medicine; ATTEND Pharmacist